=== PATIENT | female | born 1930 | race Caucasian/White ===

== ENCOUNTER → 2016-05-23 | Outpatient (CLI) | payer MEDICARE, OTHER ==
--- NOTE | 2016-05-23 09:52 | US ---
EXAMINATION TYPE: US abdomen complete DATE OF EXAM: 05/23/2016 9:17 AM COMPARISON: No previous CLINICAL HISTORY: RUQ Pain R10.11. RUQ tenderness x 2 months EXAM MEASUREMENTS: Liver Length: 12.9 cm Gallbladder Wall: 0.2 cm CBD: 0.5 cm Spleen: 8.0 cm Right Kidney: 9.7 x 4.2 x 4.1 cm Left Kidney: 9.9 x 4.1 x 4.5 cm TECHNOLOGIST IMPRESSION: Pancreas: visualized portions wnl, tail limited by overlying midline bowel gas Liver: wnl Gallbladder: wnl Evidence for sonographic Evangelista's sign: no CBD: visualized portions wnl Spleen: visualized portions wnl, limited by rib shadowing and overlying bowel gas Right Kidney: visualized portions wnl, limited by rib shadowing and overlying bowel gas Left Kidney: visualized portions wnl, limited by rib shadowing and overlying bowel gas Upper IVC: wnl Abd Aorta: wnl Limited views of the pancreas are normal. Liver is normal in size without biliary dilatation. The gallbladder is normal without evidence of cholelithiasis. The gallbladder wall measures 2 mm. The distal common hepatic duct measures 5 mm. The spleen is normal in size. Both kidneys are normal. Limited views of the aorta and IVC show atheromatous irregularity of a normal sized aorta. IMPRESSION: NORMAL ABDOMINAL ULTRASOUND.
== END | disposition home or self-care (01) ==
LOC: RADUSWWP 08:41
PROVIDERS: ATTEND Internal Medicine Geriatric Medicine
DX: R10.11 Right upper quadrant pain (principal)
CPT/HCPCS: 76700

== ENCOUNTER 2017-06-06 08:26 | Inpatient (IN) | payer MEDICARE, OTHER ==
[2017-06-06] MEDS ORDERED: MORPHINE SULFATE 4 MG/ML SYRINGE IVP ONE (08:59)
--- NOTE | 2017-06-06 09:04 | ED ---
Fall HPI - General Chief Complaint: Fall Stated Complaint: Fall Time Seen by Provider: 06/06/17 08:29 Source: patient, RN notes reviewed, old records reviewed Mode of arrival: EMS - History of Present Illness Initial Comments: This patient is a pleasant 87-year-old female chief complaint of right hip pain after a fall. Patient reports that she was on the phone with her daughter at 7: 00 this morning. She states that she was walking backwards and lost her balance and fell. Patient reports that she stayed on the phone the entire time with her daughter. She reports that she landed she did not have a headache injury or loss of conscious. Daughter reports that she talked to her the entire time she was on the phone. Patient does live alone at this time. She reports that her daughter came right away and she was brought here via EMS. She received 4 mg of morphine and Zofran via EMS prior to arrival. Patient states that she has seen Dr. Evangelista in the past for knee pain and was receiving cortisone injections. Patient is currently on warfarin, and has history of a pacemaker. Patient was going to be switching anticoagulant medications, and she discontinued her warfarin yesterday prior to starting the new medication tomorrow. Patient reports that she has some minor pain over her left foot but the majority of her pain is her right hip. She denies any numbness or tingling down the legs. - Related Data Home Medications Medication Instructions Recorded Confirmed Melatonin 5 mg PO HS PRN 01/30/15 06/06/17 Warfarin [Coumadin] 5 mg PO DIRECTED 01/30/15 06/06/17 Biotin 5 mg PO DAILY 06/06/17 06/06/17 Bisacodyl 5 mg PO HS 06/06/17 06/06/17 Calcium Polycarbophil [Fiber-Lax] 625 mg PO W/LUNCH 06/06/17 06/06/17 Docusate [Colace] 100 mg PO W/LUNCH 06/06/17 06/06/17 Edoxaban Tosylate [Savaysa] 30 mg PO DIRECTED 06/06/17 06/06/17 L.acidoph,Paracasei, B.lactis 1 cap PO DAILY 06/06/17 06/06/17 [Probiotic] Lactulose [Lactulose] 10 gm PO HS PRN 06/06/17 06/06/17 amLODIPine [Norvasc] 2.5 mg PO DAILY 06/06/17 06/06/17 Allergies Allergy/AdvReac Type Severity Reaction Status Date / Time No Known Allergies Allergy Verified 06/06/17 09:42 Review of Systems ROS Statement: Those systems with pertinent positive or pertinent negative responses have been documented in the HPI. ROS Other: All systems not noted in ROS Statement are negative. Past Medical History Past Medical History: Hypertension Additional Past Medical History / Comment(s): SEE CARDIOLOGY HISTORY PROVIDED DR. NAYAK. History of Any Multi-Drug Resistant Organisms: None Reported Past Surgical History: Hysterectomy, Pacemaker, Tonsillectomy Additional Past Surgical History / Comment(s): LEFT KNEE SCOPE. DUAL CHAMBER PACER. Past Anesthesia/Blood Transfusion Reactions: No Reported Reaction Type of Cardiac Device: Unknown Device Placement Date:: 2009 Past Psychological History: No Psychological Hx Reported Smoking Status: Never smoker Past Alcohol Use History: None Reported Past Drug Use History: None Reported General Exam - General Exam Comments Initial Comments: This patient is an 87-year-old female. She is alert and oriented. Limitations: physical limitation General appearance: alert, in no apparent distress Head exam: Present: atraumatic, normocephalic, normal inspection Eye exam: Present: normal appearance, PERRL, EOMI. Absent: scleral icterus, conjunctival injection, periorbital swelling ENT exam: Present: normal exam, mucous membranes moist Neck exam: Present: normal inspection. Absent: tenderness, meningismus, lymphadenopathy Respiratory exam: Present: normal lung sounds bilaterally. Absent: respiratory distress, wheezes, rales, rhonchi, stridor Cardiovascular Exam: Present: regular rate, normal rhythm, normal heart sounds. Absent: systolic murmur, diastolic murmur, rubs, gallop, clicks GI/Abdominal exam: Present: soft, normal bowel sounds. Absent: distended, tenderness, guarding, rebound, rigid Extremities exam: Present: normal inspection, full ROM, normal capillary refill. Absent: tenderness, pedal edema, joint swelling, calf tenderness Right Hip exam: Present: ecchymosis, shortening. Absent: normal inspection, full ROM ( unable to test range of motion of the hip due to pain and obvious shortening.), external rotation Upper Leg exam: Present: normal inspection, full ROM Knee exam: Present: normal inspection, full ROM Lower Leg exam: Present: normal inspection, full ROM Ankle exam: Present: normal inspection, full ROM Neurovascular tendon exam: Present: no vascular compromise Left Foot/Toe exam: Present: full ROM, tenderness (Minimal tenderness over the metatarsals 2 through 5.), ecchymosis (Patient has some ecchymosis over the dorsum of the left foot. She is able to move her toes. Normal pulses. Patient is lying to motion of the ankle and knee. Denies any pain in the left leg but does have some tenderness over the bruising of her left foot.). Absent : normal inspection Neurovascular tendon exam: Present: no vascular compromise Back exam: Present: normal inspection Neurological exam: Present: alert, oriented X3, CN II-XII intact Psychiatric exam: Present: normal affect, normal mood Skin exam: Present: warm, dry, intact, normal color. Absent: rash Course Vital Signs 06/06/17 06/06/17 08:28 10:00 Temperature 97 F L Pulse Rate 72 95 Respiratory 18 18 Rate Blood Pressure 186/84 171/97 O2 Sat by Pulse 97 98 Oximetry Medical Decision Making - Medical Decision Making This patient is a 7-year-old female presents for his parents today after a fall. She did not hit her head no loss conscious. She states she fell backward while talking on the phone. She does have evidence of shortened right leg with rotation consistent with fracture. Patient has a comminuted right hip fracture. Chest x-ray was reviewed and normal. Patient is currently on warfarin however she stopped it yesterday and has not had her dose today. She supposed to start a new anticoagulation medication on tomorrow. Patient at this time will be admitted to Dr. Rob consult to Dr. asencio patient's PCP for medical management. Asians family understands treatment plan. Full a catheter will be initiated. - Lab Data Result diagrams: 06/06/17 09:00 06/06/17 09:00 Lab Results 06/06/17 06/06/17 06/06/17 Range/Units 09:00 09:00 09:00 WBC 4.4 (3.8-10.6) k/uL RBC 4.41 (3.80-5.40) m/uL Hgb 13.2 (11.4-16.0) gm/dL Hct 39.8 (34.0-46.0) % MCV 90.3 (80.0-100.0) fL MCH 29.8 (25.0-35.0) pg MCHC 33.1 (31.0-37.0) g/dL RDW 13.7 (11.5-15.5) % Plt Count 233 (150-450) k/uL Neutrophils % 62 % Lymphocytes % 26 % Monocytes % 7 % Eosinophils % 2 % Basophils % 0 % Neutrophils # 2.8 (1.3-7.7) k/uL Lymphocytes # 1.2 (1.0-4.8) k/uL Monocytes # 0.3 (0-1.0) k/uL Eosinophils # 0.1 (0-0.7) k/uL Basophils # 0.0 (0-0.2) k/uL PT 17.2 H (9.0-12.0) sec INR 1.9 H (<1.2) APTT 27.3 (22.0-30.0) sec Sodium 143 (137-145) mmol/L Potassium 4.4 (3.5-5.1) mmol/L Chloride 107 (98-107) mmol/L Carbon Dioxide 26 (22-30) mmol/L Anion Gap 10 mmol/L BUN 15 (7-17) mg/dL Creatinine 0.78 (0.52-1.04) mg/dL Est GFR (CKD-EPI)AfAm 78 (>60 ml/min/1.73 sqM) Est GFR (CKD-EPI)NonAf 68 (>60 ml/min/1.73 sqM) Glucose 99 (74-99) mg/dL Calcium 9.6 (8.4-10.2) mg/dL Total Bilirubin 0.6 (0.2-1.3) mg/dL AST 29 (14-36) U/L ALT 31 (9-52) U/L Alkaline Phosphatase 79 (38-126) U/L Total Protein 6.8 (6.3-8.2) g/dL Albumin 3.8 (3.5-5.0) g/dL 06/06/17 11:42 EKG shows AV dual paced rhythm, ventricular rate of 60 bpm. MA interval 186 ms. QRS ration 156 most seconds. QT QTc is 492 ms. - Radiology Data Radiology results: report reviewed There is an acute comminuted impacted transcervical fracture of the right hip with cephalad translation of the greater trochanter proximally 2.5 cm. Chest x-ray is negative for any acute process. There is no acute fracture dislocation of the left foot. Generalized osseous demineralization and moderate degenerative changes of the midfoot and forefoot noted. Disposition Clinical Impression: Closed right hip fracture Disposition: ADMITTED IP TO THIS [facility] Condition: Good Referrals: Jose Walter MD [Primary Care Provider] - 1-2 days Time of Disposition: 11:46
[2017-06-06 09:27] LABS: Basophils % (A) 0 %; Eosinophils # (A) 0.1 k/uL (0-0.7); Eosinophils % (A) 2 %; HCT 39.8 % (34.0-46.0); HGB 13.2 gm/dL (11.4-16.0); Lymphocytes # (A) 1.2 k/uL (1.0-4.8); Lymphocytes % (A) 26 %; MCH 29.8 pg (25.0-35.0); MCHC 33.1 g/dL (31.0-37.0); MCV 90.3 fL (80.0-100.0); Mean Platelet Volume 7.3; Monocytes # (A) 0.3 k/uL (0-1.0); Monocytes % (A) 7 %; Neutrophils # (A) 2.8 k/uL (1.3-7.7); Neutrophils % (A) 62 %; Platelet Count 233 k/uL (150-450); RBC 4.41 m/uL (3.80-5.40); RDW 13.7 % (11.5-15.5); WBC 4.4 k/uL (3.8-10.6)
[2017-06-06 09:35] LABS: INR 1.9 (<1.2); Partial Thromboplastin Time 27.3 sec (22.0-30.0); Prothrombin Time 17.2 sec (9.0-12.0)
[2017-06-06 09:38] LABS: Albumin 3.8 g/dL (3.5-5.0); Calcium 9.6 mg/dL (8.4-10.2); Potassium 4.4 mmol/L (3.5-5.1); Total Bilirubin 0.6 mg/dL (0.2-1.3); Total Protein 6.8 g/dL (6.3-8.2)
--- NOTE | 2017-06-06 09:48 | XR ---
EXAMINATION TYPE: XR chest 1V DATE OF EXAM: 06/06/2017 COMPARISON: NONE HISTORY: Pain TECHNIQUE: Single frontal view of the chest is obtained. FINDINGS: There is no focal air space opacity, pleural effusion, or pneumothorax seen. The cardiac silhouette size is within normal limits. The osseous structures are intact. Cardiac device noted. A rthropathy of the shoulders and diffuse osteopenia. IMPRESSION: No acute process.
--- NOTE | 2017-06-06 09:59 | XR ---
EXAMINATION TYPE: XR Hip RT and AP Pelvis DATE OF EXAM: 06/06/2017 COMPARISON: NONE HISTORY: Fall and right hip pain TECHNIQUE: A single AP view of the pelvis is obtained. Two views of the right hip are obtained. FINDINGS: There is a comminuted, extra-articular, impacted transcervical fracture of the right hip wi th fracture fragments seen inferiorly near the femoral head and acetabular anterior wall. There is ce phalad translation of the greater trochanter of approximately 2.5 cm. The remainder of the osseous st ructures appear intact. Sacroiliac joints appear symmetric. No additional fracture is seen within the pelvis. Moderate femoral acetabular arthropathy and degenerative change of the lumbosacral junction are noted. IMPRESSION: Acute, comminuted, impacted transcervical fracture of the right hip with cephalad transla tion of the greater trochanter approximately 2.5 cm.
[2017-06-06] MEDS ORDERED: MORPHINE SULFATE 4 MG/ML SYRINGE IVP STA (10:00)
--- NOTE | 2017-06-06 10:01 | XR ---
EXAMINATION TYPE: XR foot limited LT DATE OF EXAM: 06/06/2017 CLINICAL HISTORY: Pain and bruising after a fall TECHNIQUE: Frontal, lateral, and oblique images of the left foot are obtained. COMPARISON: None FINDINGS: There is diffuse osseous demineralization. No evidence of acute fracture/dislocation is see n within the left foot. No focal soft tissue swelling is identified. Ankle mortise appears overall in tact. Moderate degenerative changes of the first metatarsophalangeal joint and distal interphalangeal joints are seen as well as to a lesser degree of the first tarsometatarsal joint. Moderate Achilles and small leads are enthesophytes are also seen. IMPRESSION: There is no acute fracture or dislocation in the left foot. Generalized osseous deminera lization and moderate degenerative changes of the midfoot and forefoot.
[2017-06-06] MEDS ORDERED: ONDANSETRON 4 MG/2 ML VIAL IVP PRN (11:46)
[2017-06-06] MEDS ORDERED: NALOXONE 0.4 MG/ML 1 ML VIAL IV PRN (11:46)
[2017-06-06] MEDS ORDERED: HYDROmorphone 0.5 MG/0.5 ML SYRINGE IVP PRN (11:46)
[2017-06-06] MEDS: HYDROcodone/APAP 5-325MG 1 EACH TAB PO PRN ×2 (12:41→16:08)
--- NOTE | 2017-06-06 12:41 | P.HPOR ---
History of Present Illness H&P Date: 06/06/17 Chief Complaint: Right hip pain status post fall Patient is a very pleasant 87-year-old female who is independent and lives at home alone who is seen and examined in the emergency department room #8 for further evaluation for her right acute comminuted impacted transcervical hip fracture. Patient is seen with her 2 daughters present at bedside. At approximately 7:00 this morning patient was on the phone with her daughter when she moved her feet to the side of the bed and fell off the side of the bed onto the floor. Family states she may have hit her hip on a piece of furniture on her way to the ground. Since that time she's been experiencing significant right-sided hip pain and inability to walk. She was brought to the emergency department for further evaluation. X-rays of the right hip andn pelvis were taken which did show evidence of right hip fracture. Patient continues to have significant pain in her right hip. She has remained on bed rest. Quintero catheter has not yet been placed at has been ordered. Patient is currently on Coumadin anticoagulation but has not taken this medication yesterday as she states she is transitioning to a non-anticoagulant medication. Her INR today was 1.9. Patient does have a history of pacemaker. She sees Dr. Nayak in cardiology in the outpatient setting. She also follows with her primary care provider Dr. Jose Walter. Patient denies any other complaints other than her right hip pain while I'm at the bedside. Patient has sensation intact over the bilateral lower extremities. Past Medical History Past Medical History: Hypertension Additional Past Medical History / Comment(s): SEE CARDIOLOGY HISTORY PROVIDED DR. NAYAK. History of Any Multi-Drug Resistant Organisms: None Reported Past Surgical History: Hysterectomy, Pacemaker, Tonsillectomy Additional Past Surgical History / Comment(s): LEFT KNEE SCOPE. DUAL CHAMBER PACER. Past Anesthesia/Blood Transfusion Reactions: No Reported Reaction Type of Cardiac Device: Unknown Device Placement Date:: 2009 Past Psychological History: No Psychological Hx Reported Smoking Status: Never smoker Past Alcohol Use History: None Reported Past Drug Use History: None Reported Medications and Allergies Home Medications Medication Instructions Recorded Confirmed Type Melatonin 5 mg PO HS PRN 01/30/15 06/06/17 History Warfarin [Coumadin] 5 mg PO DIRECTED 01/30/15 06/06/17 History Biotin 5 mg PO DAILY 06/06/17 06/06/17 History Bisacodyl 5 mg PO HS 06/06/17 06/06/17 History Calcium Polycarbophil [Fiber-Lax] 625 mg PO W/LUNCH 06/06/17 06/06/17 History Docusate [Colace] 100 mg PO W/LUNCH 06/06/17 06/06/17 History Edoxaban Tosylate [Savaysa] 30 mg PO DIRECTED 06/06/17 06/06/17 History L.acidoph,Paracasei, B.lactis 1 cap PO DAILY 06/06/17 06/06/17 History [Probiotic] Lactulose [Lactulose] 10 gm PO HS PRN 06/06/17 06/06/17 History amLODIPine [Norvasc] 2.5 mg PO DAILY 06/06/17 06/06/17 History Allergies Allergy/AdvReac Type Severity Reaction Status Date / Time No Known Allergies Allergy Verified 06/06/17 09:42 Physical Examination Physical exam: Patient is awake, alert, and oriented 3 Vital signs stable Good chest excursion with deep inspiration and expiration Right lower extremity is shortened and externally rotated Pain with palpation of the right hip Significant pain with internal and external rotation of the right hip Significant pain with palpation over the right hip fracture site No pain with internal and external rotation of the left hip Neurovascularly intact bilateral lower extremities Dorsiflexion, plantarflexion, and extensor hallucis longus positive sustained bilaterally Calves are soft and supple; No signs or symptoms of DVT; No calf pain Results Pertinent studies: X-rays of the right hip and pelvis: Acute comminuted impacted transcervical fracture of the right hip with cephalad translation of the greater trochanter approximately 2.5 cm Chest x-ray: No acute process X-ray of the left foot: No acute fracture dislocation of the left foot; generalize osseous demineralization and moderate degenerative changes of the midfoot and forefoot - Labs Labs: Abnormal Lab Results - Last 24 Hours (Table) 06/06/17 Range/Units 09:00 PT 17.2 H (9.0-12.0) sec INR 1.9 H (<1.2) H & H 06/06/17 Range/Units 09:00 Hgb 13.2 (11.4-16.0) gm/dL Hct 39.8 (34.0-46.0) % Coagulation 06/06/17 Range/Units 09:00 INR 1.9 H (<1.2) Result Diagrams: 06/06/17 09:00 06/06/17 09:00 Assessment and Plan Assessment: Assessment: Acute traumatic comminuted impacted right transcervical hip fracture Status post fall Right hip pain History of of anticoagulation therapy History of pacemaker placement (1) Status post fall Current Visit: Yes Status: Acute Code(s): Z91.81 - HISTORY OF FALLING SNOMED Code(s): 977877140 (2) Right hip pain Current Visit: Yes Status: Acute Code(s): M25.551 - PAIN IN RIGHT HIP SNOMED Code(s): 22182486 (3) History of pacemaker Current Visit: Yes Status: Acute Code(s): Z95.0 - PRESENCE OF CARDIAC PACEMAKER SNOMED Code(s): 660853111 (4) HX: anticoagulation Current Visit: Yes Status: Acute Code(s): Z92.29 - PERSONAL HISTORY OF OTHER DRUG THERAPY SNOMED Code(s): 265820720 (5) Closed right hip fracture Current Visit: Yes Status: Acute Code(s): S72.001A - FRACTURE OF UNSP PART OF NECK OF RIGHT FEMUR, INIT SNOMED Code(s): 565106515 Plan: Plan: 1. After further discussion with Dr. Sullivan, reviewing imaging, physical examination of the patient, and discussion with the patient and her family, we are currently planing for surgical intervention for her right acute traumatic comminuted impacted transcervical hip fracture. Patient is admitted to our service. We will plan for consultation for surgical clearance with Dr. Walter in medicine and Dr. Nayak in cardiology. We discussed if she is able to be cleared for surgical intervention, we'll plan for surgery tomorrow, 06/07/2017. We discussed surgical intervention would be a right hip hemiarthroplasty. Patient will currently remain on bed rest. We'll plan for Quintero catheter to be placed. We'll plan to continue with pain control. Patient will become nothing by mouth at midnight in anticipation for surgical intervention tomorrow. I discussed these issues with the patient at length and I answered all of their questions to the best of my ability and the patient understands. I discussed the risk of surgical intervention and alternative treatment options. The risk of surgical intervention was explained to the patient in detail including but not limited to risk of bleeding, risk of infection, risk and need for further surgery, risk of decreased loss of motion of function, malunion, nonunion, hardware failure, nerve damage, paralysis, heart attack, , as well as the fact that surgery may not alleviate her symptoms. I answered all the patient's questions the best of my ability. The patient would like to proceed forward with surgical intervention and will sign informed consent. 2. The patient has been placed with Dr. Walter in medicine and Dr. Nayak in cardiology for surgical clearance 3. Patient has been discussed with Dr. Sullivan and he agrees with this plan 4. We'll continue to follow the patient closely Time with Patient: Less than 30
[2017-06-06] MEDS: SODIUM CHLORIDE 0.9% 1,000 ML IV SCH (12:42)
[2017-06-06] MEDS: CALCIUM POLYCARBOPHIL 625 MG TAB PO SCH (13:46)
[2017-06-06] MEDS: DOCUSATE 100 MG CAP PO SCH (13:46)
[2017-06-06] MEDS: MORPHINE SULFATE 4 MG/ML SYRINGE IV PRN ×2 (14:16→18:08)
--- NOTE | 2017-06-06 18:53 | P.CONS ---
History of Present Illness - Reason for Consult Consult date: 06/06/17 - Chief Complaint medical management - History of Present Illness 87 years old female patient of Dr. Walter with past medical history of hyperlipidemia, hypertension, history of complete heart block status post dual pacemaker inserted in 2009 with generator change in 2014 presents after a fall. According to the family bedside patient was talking to her daughter at 7 this morning as she was waking her up for an appointment. Patient just woke up and was walking towards her cane when she lost her balance and fell backwards. Patient denies any dizziness or lightheadedness or chest pain She denies any shortness of breath, nausea, vomiting, abdominal pain or change in bowel habits. Patient was supposed to switch her Coumadin to Edoxaban and was holding her Coumadin since yesterday. She does have gait instability and walks with a cane. Vitals were stable with heart rate of 72, afebrile 97 Fahrenheit, blood pressure 186/84 saturating well on room air. CBC and CMP were unremarkable with creatinine 0.78. INR 1.9. X-ray of the foot is negative for any acute fracture or dislocation. Degenerative changes seen in the midfoot and forefoot x-ray of the hip positive for acute comminuted impacted transcervical fracture of the right hip with cephalad translation of the greater trochanter approximately 2.5 patient is scheduled to go to the OR for right hip hemiarthroplasty. Cardiology is consulted for surgical clearance. Review of Systems Constitutional: Denies chills, Denies fever, Denies lethargy Eyes: denies decreased vision, denies diplopia Ears: deny: decreased hearing Ears, nose, mouth and throat: Denies dental pain, Denies headache Cardiovascular: Denies chest pain, Denies decreased exercise tolerance, Denies edema, Denies high blood pressure, Denies irregular heart beat, Denies palpitations, Denies paroxysmal nocturnal dyspnea, Denies rapid heart beat, Denies shortness of breath Respiratory: Denies congestion, Denies cough, Denies cough with sputum, Denies dyspnea, Denies home oxygen, Denies wheezing Gastrointestinal: Denies abdominal pain, Denies change in bowel habits, Denies coffee ground emesis, Denies early satiety, Denies excessive gas, Denies heartburn, Denies hematemesis, Denies hematochezia, Denies loss of appetite, Denies nausea, Denies vomiting Genitourinary: Denies dysuria, Denies flank pain, Denies kidney stones, Denies menorrhagia, Denies urgency, Denies urinary frequency Musculoskeletal: Denies gait dysfunction, Denies limitation of motion, Denies morning stiffness, Denies muscle cramps Integumentary: Denies rash, Denies wounds, Denies brittle nails, Denies change in hair/nails, Denies darkening of skin, endorses bruise of the dorsal surface of the foot Neurological: Denies balance difficulties, Denies change in speech, Denies double vision, Denies gait dysfunction, Denies loss of vision, Denies motor disturbance, Denies numbness, Denies paralysis, Denies paresthesias, Denies seizures Endocrine: Denies excessive sweating, Denies excessive thirst, Denies high blood sugars, Denies palpitations Hematologic/Lymphatic: Denies easy bruising, Denies lymphadenopathy Past Medical History Past Medical History: Hyperlipidemia, Hypertension Additional Past Medical History / Comment(s): Complete heart block, caratid disease, "forgetful". History of Any Multi-Drug Resistant Organisms: None Reported Past Surgical History: Hysterectomy, Pacemaker, Tonsillectomy Additional Past Surgical History / Comment(s): 2010 dual pacemaker insertion with generator change in 2015, L knee arthroscopy, bilateral cataract removals Past Anesthesia/Blood Transfusion Reactions: No Reported Reaction Type of Cardiac Device: Permanent Pacemaker Device Placement Date:: 2009 inserted and gen change in 2014. Smoking Status: Never smoker - Past Family History Father Family Medical History: No Reported History Mother Family Medical History: Myocardial Infarction ([place]) Additional Family Medical History / Comment(s): Mother of a [place] before the age of 60yrs. Medications and Allergies Home Medications Medication Instructions Recorded Confirmed Type Melatonin 5 mg PO HS PRN 01/30/15 06/06/17 History Warfarin [Coumadin] 5 mg PO DIRECTED 01/30/15 06/06/17 History Biotin 5 mg PO DAILY 06/06/17 06/06/17 History Bisacodyl 5 mg PO HS 06/06/17 06/06/17 History Calcium Polycarbophil [Fiber-Lax] 625 mg PO W/LUNCH 06/06/17 06/06/17 History Docusate [Colace] 100 mg PO W/LUNCH 06/06/17 06/06/17 History Edoxaban Tosylate [Savaysa] 30 mg PO DIRECTED 06/06/17 06/06/17 History L.acidoph,Paracasei, B.lactis 1 cap PO DAILY 06/06/17 06/06/17 History [Probiotic] Lactulose [Lactulose] 10 gm PO HS PRN 06/06/17 06/06/17 History amLODIPine [Norvasc] 2.5 mg PO DAILY 06/06/17 06/06/17 History Allergies Allergy/AdvReac Type Severity Reaction Status Date / Time No Known Allergies Allergy Verified 06/06/17 09:42 Physical Exam Vitals: Vital Signs Temp Pulse Pulse Resp BP BP Pulse Ox 06/06/17 12:38 97.3 F L 62 20 154/49 97 06/06/17 12:00 97.3 F L 61 18 151/66 97 06/06/17 10:00 95 18 171/97 98 06/06/17 08:28 97 F L 72 18 186/84 97 Intake and Output 06/06/17 06/06/17 06/06/17 06:59 14:59 22:59 Intake Total 220 Balance 220 Intake: Oral 220 Other: Voiding Method Indwelling Catheter Weight 61.235 kg Patient Weight 06/07/17 06:59 Weight 61.235 kg - Constitutional General appearance: Groggy since patient got pain medication , unable to follow commands no acute distress, thin apearing - EENT Eyes: anicteric sclerae, PERRLA, normal appearance ENT: hearing grossly normal - Neck Neck: no lymphadenopathy, normal ROM, no other, no rigidity, no stridor, no thyromegaly - Respiratory Respiratory: bilateral: CTA, negative: diminished, dullness, rales, rhonchi - Cardiovascular Rhythm: regular Heart sounds: normal: S1, S2 Abnormal Heart Sounds: no systolic murmur, no diastolic murmur, no rub, no S3 Gallop, no S4 Gallop, no click, no other - Gastrointestinal General gastrointestinal: normal bowel sounds, soft, non distended, non tender - Integumentary Integumentary: no rash, bruise on the left dorsal surface of the foot, no edema present - Neurologic Neurologic: CNII-XII intact, no focal deficit - Musculoskeletal Musculoskeletal: pain on movement of the right lower extremity, patient unable to participate in exam due to sleepiness - Psychiatric Psychiatric sleepy, orientation could not be assessed as patient is sleepy Results CBC & Chem 7: 06/06/17 09:00 06/06/17 09:00 Labs: Abnormal Lab Results - Last 24 Hours (Table) 06/06/17 Range/Units 09:00 PT 17.2 H (9.0-12.0) sec INR 1.9 H (<1.2) Assessment and Plan Plan: #1 acute closed right hip fracture - plan for right hip rajat arthroplasty tomorrow pending surgical clearance by cardiology . Continue pain management with morphine and Mineral. Continue Protonix for GI prophylaxis hold Coumadin. Incentive spirometry for prevention of atelectasis. #2 hypertension continue Norvasc blood pressure consistently elevated likely secondary to pain will improve the control, if continues to have Norvasc dose can be increased. #3. History of complete heart block s/p pacemaker 2009, generator change in 2014. ECG suggests AV dual paced rhythm. Caumadin on hold. Eboxaban can be resumed post surgery based on orthopedics recommendation #4 GI prophylaxis - protonix 40 mg iv daily # 5 Code status Full code Thank you for the consult. We'll follow along with you medical care
[2017-06-06] MEDS ORDERED: ENALAPRILAT 1.25 MG/ML 1 ML VIAL IVP PRN (20:23)
[2017-06-06] MEDS ORDERED: ENALAPRILAT 1.25 MG/ML 1 ML VIAL IVP ONE (21:00)
[2017-06-06 23:10] LABS: Appearance,Urine Clear (Clear); Bacteria,Urine Rare /hpf; Bilirubin,Urine Negative (Negative); Blood,Urine Trace (Negative); Color,Urine Yellow; Glucose,Urine (UA) Negative (Negative); Hyaline Casts,Urine 1 /lpf (0-2); Ketones,Urine 1+ (Negative); Leukocyte Esterase,Urine Moderate (Negative); Mucus,Urine Rare /hpf; Nitrite,Urine Negative (Negative); PH, Urine 5.5 (5.0-8.0); Protein,Urine Negative (Negative); RBC,Urine 6 /hpf (0-5); Specific Gravity,Urine 1.016 (1.001-1.035); Squamous Epithelial Cell,Urine <1 /hpf (0-4); Urobilinogen,Urine <2.0 mg/dL (<2.0); WBC,Urine 23 /hpf (0-5)
[2017-06-07] MEDS: BISACODYL 5 MG TABLET.DR PO SCH ×2 (00:05→23:36)
[2017-06-07] MEDS: MORPHINE SULFATE 4 MG/ML SYRINGE IV PRN ×3 (00:08→20:36)
[2017-06-07 06:59] LABS: INR 1.8 (<1.2); Partial Thromboplastin Time 29.3 sec (22.0-30.0); Prothrombin Time 16.2 sec (9.0-12.0)
[2017-06-07] MEDS: PANTOPRAZOLE 40 MG/10 ML VIAL IV SCH (07:38)
[2017-06-07] MEDS: amLODIPine 2.5 MG TAB PO SCH (07:39)
[2017-06-07] MEDS ORDERED: NON-FORMULARY DRUG (Biotin [Biotin] 5 MG) PO SCH (09:00)
--- NOTE | 2017-06-07 10:38 | P.PN ---
Progress Note - Text Progress Note Date: 06/07/17 Patient is a pleasant 87-year-old female who is attempted to be seen and evaluated at the bedside this morning for further evaluation for her right femoral neck hip fracture. She is status post fall. Patient is currently undergoing EKG testing. Patient is currently scheduled to undergo right hip hemiarthroplasty today, 06/07/2017. This surgical intervention is discussed in detail with the patient's family. Patient has been medically cleared by medicine as long as the patient is cleared by cardiology. Dr. Pantoja presented to the floor during my discussion with the family and will see and evaluate the patient to assess medical clearance from a cardiology standpoint. Patient is unable to be physically seen and examined due to her currently undergoing further testing with an EKG. Pertinent studies: X-rays of the right hip and pelvis: Acute comminuted impacted transcervical fracture of the right hip with cephalad translation of the greater trochanter approximately 2.5 cm Chest x-ray: No acute process X-ray of the left foot: No acute fracture dislocation of the left foot; generalize osseous demineralization and moderate degenerative changes of the midfoot and forefoot Assessment: Acute traumatic comminuted impacted right transcervical hip fracture Status post fall Right hip pain History of of anticoagulation therapy History of pacemaker placement Plan: 1. Will currently continue with the plan as set forth yesterday. After further discussion with Dr. Sullivan, reviewing imaging, physical examination of the patient, and discussion with the patient and her family, we are currently planing for surgical intervention for her right acute traumatic comminuted impacted transcervical hip fracture. Patient is admitted to our service. Patient has obtained surgical clearance by Dr. Walter in medicine pending clearance by cardiology. Dr. Pantoja in cardiology's currently evaluating the patient for surgical clearance. We discussed if she is able to be cleared for surgical intervention, we'll plan for surgery this morning, 06/07/2017. We discussed surgical intervention would be a right hip hemiarthroplasty. Patient will currently remain on bed rest. Quintero catheter has been placed. We'll plan to continue with pain control. Patient will continued to be nothing by mouth in anticipation for surgical intervention today. Yesterday I discussed these issues with the patient at length and I answered all of their questions to the best of my ability and the patient understands. I discussed the risk of surgical intervention and alternative treatment options. The risk of surgical intervention was explained to the patient in detail including but not limited to risk of bleeding, risk of infection, risk and need for further surgery, risk of decreased loss of motion of function, malunion, nonunion, hardware failure, nerve damage, paralysis, heart attack, , as well as the fact that surgery may not alleviate her symptoms. I answered all the patient's questions the best of my ability. The patient would like to proceed forward with surgical intervention and will sign informed consent. 2. The patient has been placed with Dr. Walter in medicine who has cleared the patient pending clearance by cardiology 3. Dr. Pantoja in cardiology currently evaluating the patient for surgical clearance 3. Patient has been discussed with Dr. Sullivan and he agrees with this plan 4. We'll continue to follow the patient closely
--- NOTE | 2017-06-07 10:44 | P.CRDCN ---
History of Present Illness History of present illness: Patient stable from a vascular standpoint to proceed with surgery History of hypertension Bradycardia Atrial paced rhythm Normal 2-D echo preserved LV systolic function History of hypertension History of atrial fibrillation Continue antihypertensive therapy perioperatively Post Operative anticoagulation Will get pacemaker interrogated postoperatively No need for a magnet over the pacemaker operative Full Consult to follow Past Medical History Past Medical History: Hyperlipidemia, Hypertension Additional Past Medical History / Comment(s): Complete heart block, caratid disease, "forgetful". History of Any Multi-Drug Resistant Organisms: None Reported Past Surgical History: Hysterectomy, Pacemaker, Tonsillectomy Additional Past Surgical History / Comment(s): 2009 dual pacemaker insertion with generator change in 2014, L knee arthroscopy, bilateral cataract removals Past Anesthesia/Blood Transfusion Reactions: No Reported Reaction Type of Cardiac Device: Permanent Pacemaker Device Placement Date:: 2009 inserted and gen change in 2014. Smoking Status: Never smoker - Past Family History Father Family Medical History: No Reported History Mother Family Medical History: Myocardial Infarction ([place]) Additional Family Medical History / Comment(s): Mother of a [place] before the age of 60yrs. Medications and Allergies Home Medications Medication Instructions Recorded Confirmed Type Melatonin 5 mg PO HS PRN 01/30/15 06/06/17 History Warfarin [Coumadin] 5 mg PO DIRECTED 01/30/15 06/06/17 History Biotin 5 mg PO DAILY 06/06/17 06/06/17 History Bisacodyl 5 mg PO HS 06/06/17 06/06/17 History Calcium Polycarbophil [Fiber-Lax] 625 mg PO W/LUNCH 06/06/17 06/06/17 History Docusate [Colace] 100 mg PO W/LUNCH 06/06/17 06/06/17 History Edoxaban Tosylate [Savaysa] 30 mg PO DIRECTED 06/06/17 06/06/17 History L.acidoph,Paracasei, B.lactis 1 cap PO DAILY 06/06/17 06/06/17 History [Probiotic] Lactulose [Lactulose] 10 gm PO HS PRN 06/06/17 06/06/17 History amLODIPine [Norvasc] 2.5 mg PO DAILY 06/06/17 06/06/17 History Allergies Allergy/AdvReac Type Severity Reaction Status Date / Time No Known Allergies Allergy Verified 06/06/17 09:42 Physical Exam Vitals: Vital Signs Temp Pulse Pulse Resp BP BP Pulse Ox 06/07/17 07:00 97.8 F 80 20 139/62 95 06/07/17 00:25 97.9 F 73 15 136/60 93 L 06/07/17 00:00 15 06/06/17 20:00 61 15 06/06/17 19:00 97.9 F 61 16 149/71 94 L 06/06/17 12:38 97.3 F L 62 20 154/49 97 06/06/17 12:00 97.3 F L 61 18 151/66 97 Intake and Output 06/06/17 06/07/17 06/07/17 22:59 06:59 14:59 Intake Total 1440 1440 Output Total 500 300 Balance 940 1140 Intake: Intake, IV Titration 960 960 Amount Sodium Chloride 0.9% 1, 960 960 000 ml @ 120 mls/hr IV . Q8H20M [facility] Rx#:[id number] Oral 480 480 Output: Urine 500 300 Uretheral (Quintero) 500 300 Other: Voiding Method Indwelling Catheter Indwelling Catheter # Voids 5 Results 06/06/17 09:00 06/06/17 09:00 Coagulation 06/07/17 Range/Units 06:30 PT 16.2 H (9.0-12.0) sec APTT 29.3 (22.0-30.0) sec Current Medications Generic Name Dose Route Start Last Admin Trade Name Freq PRN Reason Stop Dose Admin Acetaminophen 650 mg 06/06/17 11:46 Tylenol Tab PO Q6HR PRN Mild Pain or Fever > 100.5 Hydrocodone Bitart/Acetaminophen 1 each 06/06/17 11:46 06/06/17 16:08 Pala 5-325 PO 1 each Q4HR PRN Administration Moderate Pain Amlodipine Besylate 2.5 mg 06/07/17 09:00 06/07/17 07:39 Norvasc PO 2.5 mg DAILY SAÚL Administration Bisacodyl 5 mg 06/06/17 21:00 06/07/17 00:05 Dulcolax PO Not Given HS SAÚL Calcium Polycarbophil 625 mg 06/06/17 12:30 06/06/17 13:46 Fibercon PO Not Given W/LUNCH SAÚL Ceftriaxone Sodium 1,000 mg 06/07/17 09:00 Rocephin IVP Q24HR [facility] Docusate Sodium 100 mg 06/06/17 12:30 06/06/17 13:46 Colace PO Not Given W/LUNCH [facility] Enalaprilat 1.25 mg 06/06/17 20:23 Vasotec IVP Q6HR PRN Blood Pressure - High Sodium Chloride 1,000 mls @ 120 mls/hr 06/06/17 12:00 06/06/17 12:42 Saline 0.9% IV 120 mls/hr .Q8H20M SAÚL Administration Lactobacillus Acidoph/Bulgaricus 1 each 06/07/17 12:00 Lactinex PO 1200 [facility] Lactulose 10 gm 06/06/17 11:50 Cephulac PO HS PRN Constipation Morphine Sulfate 4 mg 06/06/17 11:46 06/07/17 06:01 Morphine Sulfate (Inj) IV 4 mg Q4HR PRN Administration Severe Pain Naloxone HCl 0.2 mg 06/06/17 11:46 Narcan IV Q2M PRN Opioid Reversal Ondansetron HCl 4 mg 06/06/17 11:46 Zofran IVP Q8HR PRN Nausea And Vomiting Pantoprazole Sodium 40 mg 06/07/17 09:00 06/07/17 07:38 Protonix IV 40 mg DAILY SAÚL Administration Intake and Output 06/06/17 06/07/17 06/07/17 22:59 06:59 14:59 Intake Total 1440 1440 Output Total 500 300 Balance 940 1140 Intake: Intake, IV Titration 960 960 Amount Sodium Chloride 0.9% 1, 960 960 000 ml @ 120 mls/hr IV . Q8H20M [facility] Rx#:[id number] Oral 480 480 Output: Urine 500 300 Uretheral (Quintero) 500 300 Other: Voiding Method Indwelling Catheter Indwelling Catheter # Voids 5 06/06/17 09:00 06/06/17 09:00
[2017-06-07] MEDS: cefTRIAXone IN SWFI 1,000 MG/10 ML SYRINGE IVP SCH (11:16)
[2017-06-07] MEDS ORDERED: PHENYLEPHRINE-0.9% NACL SYG 1 MG/10 ML SYRINGE ONE (11:42)
[2017-06-07] MEDS ORDERED: fentaNYL (PF) 50 MCG/ML 2 ML AMP ONE (11:42)
[2017-06-07] MEDS ORDERED: ROCURONIUM BROMIDE 10 MG/ML 10 ML VIAL IV ONE (11:42)
[2017-06-07] MEDS ORDERED: PROPOFOL 10 MG/ML 20 ML VIAL IV ONE (11:42)
[2017-06-07] MEDS ORDERED: GLYCOPYRROLATE 0.2 MG/ML 2 ML VIAL ONE (11:42)
[2017-06-07] MEDS ORDERED: NEOSTIGMINE 1 MG/ML 10 ML VIAL ONE (11:42)
[2017-06-07] MEDS ORDERED: IV FLUID CONTINUATION 700 ML IV ONE (11:42)
[2017-06-07] MEDS ORDERED: SODIUM CHLORIDE 0.9% 50 ML with ceFAZolin 2,000 MG IV ONE ×2 (12:05)
[2017-06-07] MEDS ORDERED: LACTATED RINGERS 1,000 ML IV ONE (12:18)
[2017-06-07] MEDS ORDERED: SCOPOLAMINE 1.5MG/72HR PATCH TRANSDERM ONE (13:00)
[2017-06-07] MEDS ORDERED: ONDANSETRON 4 MG/2 ML VIAL IVP ONE (13:00)
--- NOTE | 2017-06-07 13:31 | CONS ---
CONSULTATION Liliya Falcon is an 87-year-old female who was talking to her daughter on the phone when she apparently slipped and fell. She did not have any syncope. She did not have any preceding chest discomfort or shortness of breath. Following that, today she has no chest pain, no shortness of breath and looks quite comfortable. She has a hip fracture and is awaiting surgery. She has a past history of hypertension, bradycardia, dual-chamber pacemaker implantation, and a history of atrial fibrillation, on anticoagulation. REVIEW OF SYSTEMS: No fever, chills or rigors. No cough or expectoration. No nausea, vomiting or diarrhea. No hematuria or dysuria. No strokes or seizures. No skin lesions. She has a hip fracture at this time. PAST HISTORY: 1. Hypertension. 2. Dyslipidemia. SURGICAL HISTORY: 1. Hysterectomy. 2. Tonsillectomy. SOCIAL HISTORY: She has never been a smoker. PHYSICAL EXAMINATION: Her blood pressure was 138/62 mmHg, heart rate in the 80s. She is afebrile, 97.8 degrees Fahrenheit. Head and neck examination is normal. Heart sounds are normal. LUNGS: Clear on auscultation. ABDOMEN: Soft, nontender. Twelve-lead ECG shows AV sequential pacing. LABS: Reviewed. Hemoglobin is 13.2. Electrolytes are normal. IMPRESSION: 1. History of bradycardia and complete heart block. She is AV sequentially paced. 2. Hypertension, on antihypertensive therapy. 3. History of atrial fibrillation, on anticoagulation. SUGGEST: Patient will proceed from a cardiac standpoint. Her 2D echo shows preserved LV systolic function. She does have complete heart block, but the surgical site is far away from the pacemaker and therefore a magnet would not be necessary. If there were any issues of bradycardia or inhibition, then a magnet may be placed intraoperatively. Antihypertensive therapy should be continued perioperatively. Thank you for the consultation. MMODL / IJN: [id number] /
--- NOTE | 2017-06-07 13:57 | P.OP ---
Date of Procedure: 06/07/17 Procedure(s) Performed: PREOPERATIVE DIAGNOSIS: Right hip femoral neck fracture POSTOPERATIVE DIAGNOSIS: Right hip femoral neck fracture OPERATION: Right hip cemented unipolar hemiarthroplasty. ANESTHESIA: Gen. ESTIMATED BLOOD LOSS: 200 ml. HOCKEY SCOUT: None COMPLICATIONS: None apparent. COMPONENTS IMPLANTED: Veronica LDFx cemented femoral stem; unipolar femoral head; neck extension augments as needed. INDICATIONS: Mrs. Falcon is an 87-year-old female with a history of falling and sustaining a femoral neck fracture. I have recommended surgical treatment with a cemented unipolar hemiarthroplasty. I have discussed this procedure in detail and explained the potential risks and complications as being inclusive of , but not limited to: Bleeding, infection, scarring, discomfort, blood vessel and/or nerve damage, limb length inequality, gait disturbance, blood clot, pulmonary embolism, , and other risks. The consent form has been signed. PROCEDURE: After appropriate consent was obtained, the patient was taken to the operating room and placed in supine position. Gen. anesthetic was administered and after confirmation of adequate anesthesia, the patient was placed into the lateral decubitus position with the affected side up. Care was taken to make sure that all pressure points were adequately padded and a Miguel Angel hip positioner was utilized for positioning. The hip was prepped and draped in the usual aseptic fashion using a combination of Chloraprep and alcohol. Ioban drape was used for the case and the patient received intravenous antibiotics prior to the incision. The incision was created directly over the greater trochanter and carried slightly posteriorly for a posterior approach to the hip. The incision was then deepened down to subcutaneous tissue and fascia jean-pierre. Fascia jean-pierre was split in line with the incision and split proximally along the fibers of the gluteus bailey. The underlying fibers of the muscle were teased apart using finger dissection and bleeding vessels were picked up and coagulated. Retractor was then placed posteriorly consisting of a blunt Linton. The short external rotators and capsule were exposed and good visualization of the attachment of the external rotators to the femur was established. The short external rotators and capsule were released using electrocautery from their femoral attachments. A hockey stick shaped incision was created in the capsule. Joint fluid and hemarthrosis was evacuated and the patient's hip was internally rotated to expose the fracture site. The femoral neck cut was created approximately 1 cm superior to the lesser trochanter using a reciprocating saw. The femoral head and neck fragment was removed and visualization and palpation of the acetabular vault showed intact hyaline cartilage with no bone exposure or significant degeneration. Attention was then directed back to the proximal femur. Retractors were placed around the proximal femur and box osteotome was used followed by canal finder and trochanteric reamer. Cylindrical reaming was performed. Progressive broaching was then performed starting with a #10 broach and progressing final size, in a position of 10-15 degrees anteversion. Kaw anteversion was within 5 degrees of stem position. The final size broach had excellent fit and fill of the patient's metaphysis and diaphysis. Calcar planing was performed. Trial reduction was then performed starting with appropriately sized femoral head and various neck extensions to evaluate stability, limb length equality, and soft tissue tension. Once these parameters were satisfactory, the corresponding final components were then called for. Trial components were removed. The femoral canal was sized for the centralizer and cement plug. Once the cement plug had been inserted distal to the planned length of the femoral component, the canal was pulse lavaged and brushed to remove any unstable bone. It was then dried with a lap sponge. Cement was mixed under vacuum conditions to decrease porosity and inserted into a cement gun. Distal centralizer was placed onto the femoral component with a bit of cement. The cement was allowed to reach a slightly doughy consistency and then the canal was filled retrograde with the cement gun. Thumb pressurization was performed three times. The femoral component was then inserted with the previously determined degree of anteversion. Excess cement was removed before it hardened completely. The femoral head was then impacted onto the Platt taper. Blood and debris were removed from the acetabular socket and the hip was then reduced and checked for stability, limb length and soft tissue tension. These parameters were found to be satisfactory; the wound was then thoroughly irrigated with normal saline. Final hemostasis was obtained using electrocautery. Closure of the capsule was performed meticulously using #3 Vicryl suture. Four [id number] sutures were placed in the posterior capsule along with repair of the external rotators. The fascia jean-pierre was then repaired using combination of #3 Vicryl suture in interrupted fashion and Quill in running fashion. 2-0 Vicryl suture was used for the subcutaneous tissues and 3-0 Quill for the skin. Dermabond tape was then applied. The patient tolerated the procedure well. There were no complications and the wound bed was dry and there was no need for drain placement. Sterile dressing was then applied and the patient was carefully removed from the operating room table, placed on the stretcher and was taken to the recovery room in stable condition. Sponge and needle counts were correct.
[2017-06-07] MEDS: LACTOBACILLUS ACIDOPH & BULGAR 1 EACH PACKET PO SCH (15:44)
[2017-06-07] MEDS: CALCIUM POLYCARBOPHIL 625 MG TAB PO SCH (15:44)
[2017-06-07] MEDS: DOCUSATE 100 MG CAP PO SCH (15:44)
[2017-06-07] MEDS ORDERED: WARFARIN 2.5 MG TAB PO ONE (18:00)
[2017-06-07] MEDS: HYDROcodone/APAP 5-325MG 1 EACH TAB PO PRN ×2 (18:22→23:36)
[2017-06-07] MEDS: ceFAZolin IN SWFI 2 GM/20 ML SYRINGE IVP SCH (20:40)
--- NOTE | 2017-06-07 21:50 | P.PN ---
Subjective Progress Note Date: 06/07/17 87 years old female patient of Dr. Walter with past medical history of hyperlipidemia, hypertension, history of complete heart block status post dual pacemaker inserted in 2009 with generator change in 2014 presents after a fall. According to the family bedside patient was talking to her daughter at 7 this morning as she was waking her up for an appointment. Patient just woke up and was walking towards her cane when she lost her balance and fell backwards. Patient denies any dizziness or lightheadedness or chest pain She denies any shortness of breath, nausea, vomiting, abdominal pain or change in bowel habits. Patient was supposed to switch her Coumadin to Edoxaban and was holding her Coumadin since yesterday. She does have gait instability and walks with a cane. Vitals were stable with heart rate of 72, afebrile 97 Fahrenheit, blood pressure 186/84 saturating well on room air. CBC and CMP were unremarkable with creatinine 0.78. INR 1.9. X-ray of the foot is negative for any acute fracture or dislocation. Degenerative changes seen in the midfoot and forefoot x-ray of the hip positive for acute comminuted impacted transcervical fracture of the right hip with cephalad translation of the greater trochanter approximately 2.5 patient is scheduled to go to the OR for right hip hemiarthroplasty. Cardiology is consulted for surgical clearance. 06/07: Patient has been cleared by cardiology, patient has been off Coumadin, pacemaker to be interrogated post op, patient does not have any chest pain or shortness of breath or palpitations, and is currently being wheeled out for intraoperative rajat-arthroplasty today the urinalysis requested, patient has some pyuria, currently being treated with IV Rocephin initiated for urinary tract infection Objective - Vital Signs Vital signs: Vital Signs Temp 97.8 F 06/07/17 07:00 Pulse 80 06/07/17 07:00 Resp 20 06/07/17 07:00 BP 139/62 06/07/17 07:00 Pulse Ox 95 06/07/17 07:00 Intake & Output 06/06/17 06/07/17 06/07/17 18:59 06:59 18:59 Intake Total 220 2880 Output Total 500 300 Balance -280 2580 Weight 61.235 kg Intake: Intake, IV Titration 1920 Amount Sodium Chloride 0.9% 1919 000 ml @ 120 mls/hr IV . Q8H20M [facility] Rx#:[id number] Oral 220 960 Output: Urine 500 300 Uretheral (Quintero) 500 300 Other: Voiding Method Indwelling Catheter Indwelling Catheter Indwelling Catheter # Voids 5 - Constitutional General appearance: Present: average body habitus, cooperative, no acute distress - EENT Eyes: Present: anicteric sclerae, EOMI, PERRLA, dentition normal, normal appearance ENT: Present: hearing grossly normal, NA/AT, normal oropharynx - Neck Neck: Present: normal ROM - Respiratory Respiratory: bilateral: CTA, negative: diminished, dullness, rales - Cardiovascular Rhythm: regular Heart sounds: normal: S1, S2 Abnormal Heart Sounds: Absent: systolic murmur, diastolic murmur, rub, S3 Gallop , S4 Gallop, click, other - Gastrointestinal General gastrointestinal: Present: soft - Integumentary Integumentary: Present: normal, normal turgor - Neurologic Neurologic: Present: CNII-XII intact - Musculoskeletal Musculoskeletal: Present: strength equal bilaterally - Psychiatric Psychiatric: Present: A&O x's 3, appropriate affect, intact judgment & insight - Additional findings Additional findings: Laboratory Results WBC 4.4 k/uL (3.8-10.6) 06/06/17 09:00 RBC 4.41 m/uL (3.80-5.40) 06/06/17 09:00 Hgb 13.2 gm/dL (11.4-16.0) 06/06/17 09:00 Hct 39.8 % (34.0-46.0) 06/06/17 09:00 MCV 90.3 fL (80.0-100.0) 06/06/17 09:00 MCH 29.8 pg (25.0-35.0) 06/06/17 09:00 MCHC 33.1 g/dL (31.0-37.0) 06/06/17 09:00 RDW 13.7 % (11.5-15.5) 06/06/17 09:00 Plt Count 233 k/uL (150-450) 06/06/17 09:00 Neutrophils % 62 % 06/06/17 09:00 Lymphocytes % 26 % 06/06/17 09:00 Monocytes % 7 % 06/06/17 09:00 Eosinophils % 2 % 06/06/17 09:00 Basophils % 0 % 06/06/17 09:00 Neutrophils # 2.8 k/uL (1.3-7.7) 06/06/17 09:00 Lymphocytes # 1.2 k/uL (1.0-4.8) 06/06/17 09:00 Monocytes # 0.3 k/uL (0-1.0) 06/06/17 09:00 Eosinophils # 0.1 k/uL (0-0.7) 06/06/17 09:00 Basophils # 0.0 k/uL (0-0.2) 06/06/17 09:00 PT 16.2 sec (9.0-12.0) H 06/07/17 06:30 INR 1.8 (<1.2) H 06/07/17 06:30 APTT 29.3 sec (22.0-30.0) 06/07/17 06:30 Sodium 143 mmol/L (137-145) 06/06/17 09:00 Potassium 4.4 mmol/L (3.5-5.1) 06/06/17 09:00 Chloride 107 mmol/L (98-107) 06/06/17 09:00 Carbon Dioxide 26 mmol/L (22-30) 06/06/17 09:00 Anion Gap 10 mmol/L 06/06/17 09:00 BUN 15 mg/dL (7-17) 06/06/17 09:00 Creatinine 0.78 mg/dL (0.52-1.04) 06/06/17 09:00 Est GFR (CKD-EPI)AfAm 78 (>60 ml/min/1.73 sqM) 06/06/17 09:00 Est GFR (CKD-EPI)NonAf 68 (>60 ml/min/1.73 sqM) 06/06/17 09:00 Glucose 99 mg/dL (74-99) 06/06/17 09:00 Calcium 9.6 mg/dL (8.4-10.2) 06/06/17 09:00 Total Bilirubin 0.6 mg/dL (0.2-1.3) 06/06/17 09:00 AST 29 U/L (14-36) 06/06/17 09:00 ALT 31 U/L (9-52) 06/06/17 09:00 Alkaline Phosphatase 79 U/L (38-126) 06/06/17 09:00 Total Protein 6.8 g/dL (6.3-8.2) 06/06/17 09:00 Albumin 3.8 g/dL (3.5-5.0) 06/06/17 09:00 Urine Color Yellow 06/06/17 22:43 Urine Appearance Clear (Clear) 06/06/17 22:43 Urine pH 5.5 (5.0-8.0) 06/06/17 22:43 Ur Specific [place] 1.016 (1.001-1.035) 06/06/17 22:43 Urine Protein Negative (Negative) 06/06/17 22:43 Urine Glucose (UA) Negative (Negative) 06/06/17 22:43 Urine Ketones 1+ (Negative) H 06/06/17 22:43 Urine Blood Trace (Negative) H 06/06/17 22:43 Urine Nitrite Negative (Negative) 06/06/17 22:43 Urine Bilirubin Negative (Negative) 06/06/17 22:43 Urine Urobilinogen <2.0 mg/dL (<2.0) 06/06/17 22:43 Ur Leukocyte Esterase Moderate (Negative) H 06/06/17 22:43 Urine RBC 6 /hpf (0-5) H 06/06/17 22:43 Urine WBC 23 /hpf (0-5) H 06/06/17 22:43 Ur Squamous Epith Cells <1 /hpf (0-4) 06/06/17 22:43 Urine Bacteria Rare /hpf (None) H 06/06/17 22:43 Hyaline Casts 1 /lpf (0-2) 06/06/17 22:43 Urine Mucus Rare /hpf (None) H 06/06/17 22:43 - Labs CBC & Chem 7: 06/06/17 09:00 06/06/17 09:00 Labs: Abnormal Lab Results - Last 24 Hours (Table) 06/06/17 06/07/17 Range/Units 22:43 06:30 PT 16.2 H (9.0-12.0) sec INR 1.8 H (<1.2) Urine Ketones 1+ H (Negative) Urine Blood Trace H (Negative) Ur Leukocyte Esterase Moderate H (Negative) Urine RBC 6 H (0-5) /hpf Urine WBC 23 H (0-5) /hpf Urine Bacteria Rare H (None) /hpf Urine Mucus Rare H (None) /hpf Assessment and Plan Plan: . #1 acute closed right hip fracture - plan for right hip rajat arthroplasty today on 06/07/2017 cleared by cardiology to proceed . Continue pain management with morphine and [place]. Continue Protonix for GI prophylaxis hold Coumadin. Incentive spirometry for prevention of atelectasis. Him a DVT anticoagulation patient's on long-term anticoagulation prior to this admission #2 hypertension continue Norvasc blood pressure consistently elevated likely secondary to pain will improve the control, if continues to have Norvasc dose can be increased. #3. History of atrial fibrillation, currently on long-term anticoagulation with Savaysa this would be resumed postoperatively, however patient is also on Coumadin prior to admission which is a confusing home medication medication reconciliation, this will be clarified #4 History of complete heart block s/p pacemaker 2009, generator change in 2014. ECG suggests AV dual paced rhythm. Chronically on long-term anticoagulation #5 GI prophylaxis - protonix 40 mg iv daily # 5 Code status DO NOT RESUSCITATE #6, pyuria, suspected acute urinary tract infection on IV Rocephin initiated, cultures are sent and is pending #7, discharge planning, subacute rehab with patient or inpatient rehabilitation , therapies are in progress
[2017-06-07] MEDS: SODIUM CHLORIDE 0.9% 1,000 ML IV SCH ×2 (22:37→22:38)
[2017-06-08] MEDS: SODIUM CHLORIDE 0.9% 1,000 ML IV SCH ×4 (00:35→23:06)
[2017-06-08] MEDS: MORPHINE SULFATE 4 MG/ML SYRINGE IV PRN ×2 (01:43→11:21)
[2017-06-08] MEDS: ceFAZolin IN SWFI 2 GM/20 ML SYRINGE IVP SCH (04:24)
[2017-06-08] MEDS: HYDROcodone/APAP 5-325MG 1 EACH TAB PO PRN ×3 (08:08→23:04)
[2017-06-08] MEDS: PANTOPRAZOLE 40 MG/10 ML VIAL IV SCH (08:08)
[2017-06-08] MEDS: amLODIPine 2.5 MG TAB PO SCH (08:08)
[2017-06-08 08:16] LABS: INR 2.2 (<1.2); Prothrombin Time 19.5 sec (9.0-12.0)
[2017-06-08] MEDS: cefTRIAXone IN SWFI 1,000 MG/10 ML SYRINGE IVP SCH (08:45)
[2017-06-08] MEDS: LACTOBACILLUS ACIDOPH & BULGAR 1 EACH PACKET PO SCH (12:06)
[2017-06-08] MEDS: DOCUSATE 100 MG CAP PO SCH (12:06)
[2017-06-08] MEDS: CALCIUM POLYCARBOPHIL 625 MG TAB PO SCH (12:06)
--- NOTE | 2017-06-08 13:31 | P.PN ---
Progress Note - Text Progress Note Date: 06/08/17 Patient is a pleasant 87-year-old female who is seen and examined at bedside for follow-up evaluation for her right hip. She is status post day #1 for right hip hemiarthroplasty. Patient continues to have some pain in the right hip. She has been receiving oral and IV pain medications for pain control. She has been able to transfer to a bedside chair with assistance. She has had some improvement of her pain as compared to prior to surgical intervention. She is eating without difficulty. Quintero catheter remains intact. She is being treated for urinary tract infection by medicine with [place]. Patient and her family states they have discussed discharged to [facility] with plans for discharge this coming 06/10/2017. Physical Exam Hip Hemiarthroplasty: Status post surgical day number 1 Patient is examined sitting bedside upright in a chair Patient is awake, alert, and oriented 3 Vital signs stable Good chest excursion with deep inspiration and expiration Abdomen soft nontender No signs or symptoms of DVT; no calf pain Lower extremity cuffs in place bilaterally Dressing of the right hip is clean, dry, and intact; no erythema, purulence, or signs of infection Full range of motion of ankles bilaterally Dorsiflexion, plantarflexion, and extensor hallucis longus positive sustained bilaterally Neurovascularly intact bilateral lower extremities Capillary refill less than 2 seconds bilateral lower extremities Quintero catheter intact Assessment: Status post day #1 right hip hemiarthroplasty Right hip pain Status post fall Urinary tract infection History of of anticoagulation therapy History of pacemaker placement Plan: 1. Patient may continue to weight-bear as tolerated on the lower extremity; patient may work with physical therapy to increase mobility and ambulation 2. Continue pain control 3. We will plan to discontinue her Quintero catheter 4. Medicine to continue following the patient for their other medical issues including treatment for urinary tract infection 5. Continue with with anticoagulation therapy 5. We'll continue to follow the patient 6. If the patient continues to improve, we will plan for discharge to [facility] this coming 06/10/2017 7. Patient can follow-up with Birdie Chang PA-C or Dr. Sullivan at [facility] in 2-3 weeks following discharge
[2017-06-08] MEDS: BISACODYL 5 MG TABLET.DR PO SCH (22:31)
--- NOTE | 2017-06-08 23:29 | P.PN ---
Subjective Progress Note Date: 06/08/17 87 years old female patient of Dr. Walter with past medical history of hyperlipidemia, hypertension, history of complete heart block status post dual pacemaker inserted in 2009 with generator change in 2014 presents after a fall. According to the family bedside patient was talking to her daughter at 7 this morning as she was waking her up for an appointment. Patient just woke up and was walking towards her cane when she lost her balance and fell backwards. Patient denies any dizziness or lightheadedness or chest pain She denies any shortness of breath, nausea, vomiting, abdominal pain or change in bowel habits. Patient was supposed to switch her Coumadin to Edoxaban and was holding her Coumadin since yesterday. She does have gait instability and walks with a cane. Vitals were stable with heart rate of 72, afebrile 97 Fahrenheit, blood pressure 186/84 saturating well on room air. CBC and CMP were unremarkable with creatinine 0.78. INR 1.9. X-ray of the foot is negative for any acute fracture or dislocation. Degenerative changes seen in the midfoot and forefoot x-ray of the hip positive for acute comminuted impacted transcervical fracture of the right hip with cephalad translation of the greater trochanter approximately 2.5 patient is scheduled to go to the OR for right hip hemiarthroplasty. Cardiology is consulted for surgical clearance. 06/07: Patient has been cleared by cardiology, patient has been off Coumadin, pacemaker to be interrogated post op, patient does not have any chest pain or shortness of breath or palpitations, and is currently being wheeled out for intraoperative rajat-arthroplasty today the urinalysis requested, patient has some pyuria, currently being treated with IV Rocephin initiated for urinary tract infection 06/08: Patient's doing well, no significant postoperative pain, no nausea no chest pain or palpitations, cardiology is following regarding pacemaker interrogation, patient is anticipated to be discharged to [facility] on Friday, until coagulation has been clarified, patient is to be transitioned to Savayza chronically, Coumadin discontinued today, Savayza first dose in the morning Objective - Vital Signs Vital signs: Vital Signs Temp 98.1 F 06/08/17 00:00 Pulse 83 06/08/17 00:00 Resp 18 06/08/17 00:00 BP 117/64 06/08/17 00:00 Pulse Ox 96 06/08/17 00:00 Intake & Output 06/07/17 06/08/17 06/08/17 17:59 06:59 18:59 Intake Total 100 Output Total 200 Balance -100 Intake: IV Intake, IV Titration Amount Sodium Chloride 0.9% 1, 000 ml @ 120 mls/hr IV . Q8H20M [facility] Rx#:[id number] Oral 100 Output: Urine 200 Uretheral (Quintero) 200 Estimated Blood Loss Other: Voiding Method Indwelling Catheter # Voids - Constitutional General appearance: Present: cooperative, no acute distress - EENT Eyes: Present: anicteric sclerae, PERRLA, dentition normal, normal appearance ENT: Present: hearing grossly normal, normal oropharynx - Respiratory Respiratory: bilateral: CTA, diminished, negative: dullness, rales, rhonchi, wheezing, prolonged expiration - Cardiovascular Rhythm: regular Heart sounds: normal: S1, S2 Abnormal Heart Sounds: Absent: systolic murmur, diastolic murmur, rub, S3 Gallop , S4 Gallop, click, other - Gastrointestinal General gastrointestinal: Present: normal bowel sounds, soft - Integumentary Integumentary: Present: normal turgor - Neurologic Neurologic: Present: CNII-XII intact - Musculoskeletal Musculoskeletal: Present: strength equal bilaterally - Labs CBC & Chem 7: 06/06/17 09:00 06/06/17 09:00 Labs: Abnormal Lab Results - Last 24 Hours (Table) 06/08/17 Range/Units 07:00 PT 19.5 H (9.0-12.0) sec INR 2.2 H (<1.2) Microbiology - Last 24 Hours (Table) 06/07/17 09:35 Urine Culture - Preliminary Urine,Catheterized Assessment and Plan Plan: . #1 acute closed right hip fracture - plan for right hip rajat arthroplasty today on 06/07/2017 cleared by cardiology to proceed . Continue pain management with morphine and [place]. Continue Protonix for GI prophylaxis hold Coumadin. Incentive spirometry for prevention of atelectasis. Him a DVT anticoagulation patient's on long-term anticoagulation prior to this admission #2 hypertension continue Norvasc blood pressure consistently elevated likely secondary to pain will improve the control, if continues to have Norvasc dose can be increased. #3. History of atrial fibrillation, currently on long-term anticoagulation with Savaysa this would be resumed postoperatively, however patient is also on Coumadin prior to admission, this is clarified to family members, she has rx for savayza 30 mg #4 History of complete heart block s/p pacemaker 2009, generator change in 2014. ECG suggests AV dual paced rhythm. Chronically on long-term anticoagulation #5 GI prophylaxis - protonix 40 mg iv daily # 5 Code status DO NOT RESUSCITATE #6, pyuria, suspected acute urinary tract infection on IV Rocephin initiated, cultures are sent and is pending #7, discharge planning, subacute rehab with patient or inpatient rehabilitation , therapies are in progress
[2017-06-09] MEDS: ACETAMINOPHEN TAB 325 MG TAB PO PRN (01:57)
[2017-06-09 08:08] LABS: Basophils % (A) 0 %; Eosinophils # (A) 0.1 k/uL (0-0.7); Eosinophils % (A) 2 %; HCT 28.8 % (34.0-46.0); Lymphocytes % (A) 13 %; MCH 29.9 pg (25.0-35.0); MCHC 33.8 g/dL (31.0-37.0); MCV 88.5 fL (80.0-100.0); Mean Platelet Volume 7.3; Monocytes # (A) 0.6 k/uL (0-1.0); Monocytes % (A) 8 %; Neutrophils # (A) 5.5 k/uL (1.3-7.7); Neutrophils % (A) 76 %; Platelet Count 216 k/uL (150-450); RBC 3.26 m/uL (3.80-5.40); RDW 13.5 % (11.5-15.5); WBC 7.3 k/uL (3.8-10.6)
[2017-06-09 08:10] LABS: Potassium 4.1 mmol/L (3.5-5.1)
[2017-06-09 08:12] LABS: HGB 9.7 gm/dL (11.4-16.0)
[2017-06-09] MEDS: cefTRIAXone IN SWFI 1,000 MG/10 ML SYRINGE IVP SCH (08:42)
[2017-06-09] MEDS: HYDROcodone/APAP 5-325MG 1 EACH TAB PO PRN ×2 (08:42→16:58)
[2017-06-09] MEDS: EDOXABAN TOSYLATE 30 MG TABLET PO SCH (08:43)
[2017-06-09] MEDS: PANTOPRAZOLE 40 MG/10 ML VIAL IV SCH (08:43)
[2017-06-09] MEDS: amLODIPine 2.5 MG TAB PO SCH (08:43)
[2017-06-09] MEDS: LACTULOSE 20 GM/30 ML CUP PO PRN (11:20)
--- NOTE | 2017-06-09 13:13 | ECHOF ---
Referral Reason:surgery MEASUREMENTS -------- HEIGHT: 152.4 cm WEIGHT: 61.2 kg BP: RVIDd: 2.6 cm (< 3.3) IVSd: 1.5 cm (0.6 - 1.1) LVIDd: 2.6 cm (3.9 - 5.3) LVPWd: 1.6 cm (0.6 - 1.1) IVSs: 1.7 cm LVIDs: 1.5 cm LVPWs: 2.0 cm LAESV Index (A-L): 20.09 ml/m Ao Diam: 2.8 cm (2.0 - 3.7) AV Cusp: 1.7 cm (1.5 - 2.6) LA Diam: 3.0 cm (2.7 - 3.8) MV EXCURSION: 8.134 mm (> 18.000) MV EF SLOPE: 30 mm/s (70 - 150) EPSS: 0.7 cm MV E Edgard: 0.79 m/s MV DecT: 271 ms MV A Edgard: 1.23 m/s MV E/A Ratio: 0.65 RAP: 5.00 mmHg RVSP: 20.06 mmHg FINDINGS -------- Paced rhythm. This was a technically good study. The left ventricular size is normal. There is moderate concentric left ventricular hypertrophy. O verall left ventricular systolic function is low-normal with, an EF between 50 - 55 %. The right ventricle is normal in size and function. The left atrium is normal in size. The right atrium is normal in size. The aortic valve is trileaflet, and appears structurally normal. No aortic stenosis or regurgitation. The mitral valve leaflets are mildly thickened. Mild mitral regurgitation is present. Mild tricuspid regurgitation present. The right ventricular systolic pressure, as measured by Doppl er, is 20.06mmHg. Pulmonic valve appears structurally normal. The aortic root size is normal. Normal inferior vena cava with normal inspiratory collapse consistent with estimated right atrial pre ssure of 5 mmHg. The pericardium is normal. CONCLUSIONS -------- 1. Paced rhythm. 2. This was a technically good study. 3. The left ventricular size is normal. 4. There is moderate concentric left ventricular hypertrophy. 5. Overall left ventricular systolic function is low-normal with, an EF between 50 - 55 %. 6. The right ventricle is normal in size and function. 7. The left atrium is normal in size. 8. The right atrium is normal in size. 9. The aortic valve is trileaflet, and appears structurally normal. No aortic stenosis or regurgitati on. 10. The mitral valve leaflets are mildly thickened. 11. Mild mitral regurgitation is present. 12. Mild tricuspid regurgitation present. 13. The right ventricular systolic pressure, as measured by Doppler, is 20.06mmHg. 14. Pulmonic valve appears structurally normal. 15. The aortic root size is normal. 16. Normal inferior vena cava with normal inspiratory collapse consistent with estimated right atrial pressure of 5 mmHg. 17. The pericardium is normal. BOOKSTORE CLERK: Birdie Mendez RDCS
[2017-06-09] MEDS: TAMSULOSIN 0.4 MG CAP.ER.24H PO SCH (14:53)
[2017-06-09] MEDS: DOCUSATE 100 MG CAP PO SCH (14:53)
[2017-06-09] MEDS: CALCIUM POLYCARBOPHIL 625 MG TAB PO SCH (14:53)
[2017-06-09] MEDS: CEPHALEXIN 500 MG CAP PO SCH ×2 (14:53→20:29)
--- NOTE | 2017-06-09 15:33 | P.PN ---
Subjective 87 years old female patient of Dr. Walter with past medical history of hyperlipidemia, hypertension, history of complete heart block status post dual pacemaker inserted in 2009 with generator change in 2014 presents after a fall. According to the family bedside patient was talking to her daughter at 7 this morning as she was waking her up for an appointment. Patient just woke up and was walking towards her cane when she lost her balance and fell backwards. Patient denies any dizziness or lightheadedness or chest pain She denies any shortness of breath, nausea, vomiting, abdominal pain or change in bowel habits. Patient was supposed to switch her Coumadin to Edoxaban and was holding her Coumadin since yesterday. She does have gait instability and walks with a cane. Vitals were stable with heart rate of 72, afebrile 97 Fahrenheit, blood pressure 186/84 saturating well on room air. CBC and CMP were unremarkable with creatinine 0.78. INR 1.9. X-ray of the foot is negative for any acute fracture or dislocation. Degenerative changes seen in the midfoot and forefoot x-ray of the hip positive for acute comminuted impacted transcervical fracture of the right hip with cephalad translation of the greater trochanter approximately 2.5 patient is scheduled to go to the OR for right hip hemiarthroplasty. Cardiology is consulted for surgical clearance. 06/07: Patient has been cleared by cardiology, patient has been off Coumadin, pacemaker to be interrogated post op, patient does not have any chest pain or shortness of breath or palpitations, and is currently being wheeled out for intraoperative rajat-arthroplasty today the urinalysis requested, patient has some pyuria, currently being treated with IV Rocephin initiated for urinary tract infection 06/08: Patient's doing well, no significant postoperative pain, no nausea no chest pain or palpitations, cardiology is following regarding pacemaker interrogation, patient is anticipated to be discharged to [facility] on Friday, until coagulation has been clarified, patient is to be transitioned to Savayza chronically, Coumadin discontinued today, Savayza first dose in the morning 06/09: Patient was evaluated today, family was at bedside. Patient was noted to have some urinary retention, she was straight cathed and noted to have 900 mL's of urine this morning. Flomax added will continue to monitor for urinary retention. Dr. Montemayor consulted for possible inpatient rehab. Plan for possible discharge tomorrow. Objective - Vital Signs Vital signs: Vital Signs Temp 97.1 F L 06/09/17 14:54 Pulse 91 06/09/17 14:54 Resp 16 06/09/17 14:54 BP 142/67 06/09/17 14:54 Pulse Ox 97 06/09/17 14:54 Intake & Output 06/08/17 06/09/17 06/09/17 18:59 06:59 18:59 Intake Total 760 590 Output Total 200 1045 950 Balance 560 -455 -950 Intake: Oral 760 590 Output: Urine 200 1045 950 Straight 950 Uretheral (Quintero) 200 Other: Voiding Method Bedside Commode Bedside Commode Bedside Commode Bedpan Bedpan Diaper Diaper # Voids 1 - Exam - Constitutional General appearance: Present: cooperative, no acute distress - EENT Eyes: Present: anicteric sclerae, PERRLA, dentition normal, normal appearance ENT: Present: hearing grossly normal, normal oropharynx - Respiratory Respiratory: bilateral: CTA, diminished, negative: dullness, rales, rhonchi, wheezing, prolonged expiration - Cardiovascular Rhythm: regular Heart sounds: normal: S1, S2 Abnormal Heart Sounds: Absent: systolic murmur, diastolic murmur, rub, S3 Gallop , S4 Gallop, click, other - Gastrointestinal General gastrointestinal: Present: normal bowel sounds, soft - Integumentary Integumentary: Present: normal turgor - Neurologic Neurologic: Present: CNII-XII intact - Musculoskeletal Musculoskeletal: Present: strength equal bilaterally - Labs CBC & Chem 7: 06/09/17 06:41 06/09/17 06:41 Labs: Abnormal Lab Results - Last 24 Hours (Table) 06/09/17 06/09/17 Range/Units 06:41 06:41 RBC 3.26 L (3.80-5.40) m/uL Hgb 9.7 L D (11.4-16.0) gm/dL Hct 28.8 L (34.0-46.0) % Glucose 113 H (74-99) mg/dL Microbiology - Last 24 Hours (Table) 06/07/17 09:35 Urine Culture - Preliminary Urine,Catheterized Group D Enterococcus Assessment and Plan Plan: #1 acute closed right hip fracture - plan for right hip rajat arthroplasty today on 06/07/2017 cleared by cardiology to proceed. Continue pain management with morphine and [place]. Continue Protonix for GI prophylaxis hold Coumadin. Incentive spirometry for prevention of atelectasis. Him a DVT anticoagulation patient's on long-term anticoagulation prior to this admission #2 hypertension continue Norvasc blood pressure consistently elevated likely secondary to pain will improve the control, if continues to have Norvasc dose can be increased. #3. History of atrial fibrillation, currently on long-term anticoagulation with Savaysa this would be resumed postoperatively, however patient is also on Coumadin prior to admission, this is clarified to family members, she has rx for savayza 30 mg #4 History of complete heart block s/p pacemaker 2009, generator change in 2014. ECG suggests AV dual paced rhythm. Chronically on long-term anticoagulation #5 GI prophylaxis - protonix 40 mg iv daily #6 Code status DO NOT RESUSCITATE #7 pyuria, suspected acute urinary tract infection on IV Rocephin initiated, cultures are sent positive for group D enterococcus #8 discharge planning, subacute rehab with patient or inpatient rehabilitation, therapies are in progress The above impression and plan of care have been discussed and directed by signing physician. Sary Figueroa nurse practitioner acting as scribe for signing physician.
[2017-06-09] MEDS: ALPRAZolam 0.25 MG TAB PO PRN (20:29)
[2017-06-09] MEDS: LACTOBACILLUS ACIDOPH & BULGAR 1 EACH PACKET PO SCH (20:29)
[2017-06-09] MEDS: BISACODYL 5 MG TABLET.DR PO SCH (20:29)
[2017-06-09] MEDS: SODIUM CHLORIDE 0.9% 1,000 ML IV SCH (22:44)
[2017-06-10] MEDS: HYDROcodone/APAP 5-325MG 1 EACH TAB PO PRN (00:18)
--- NOTE | 2017-06-10 06:26 | P.CONS ---
History of Present Illness - Chief Complaint Walking difficulty - History of Present Illness I had the opportunity to see patient for inpatient rehab consultation with regard to walking difficulty. She was admitted to [facility] June 06 with history of fall and right hip pain. X-ray demonstrated comminuted impacted transcervical right hip fracture. Chest x-ray negative. Foot x-ray with demineralization. Seen by Dr. Cortez for medical as well as Dr. Pantoja for cardiology. PT reports moderate assistance for bed mobility, transfers, gait 4 feet with roller walker. OT reports supervision for upper dressing and maximal assistance for lower dressing and moderate assistance for bathing, toileting, functional mobility. Previous functional history as elicited from patient: 87-year-old right-handed white female who is lives and 2 floor home with . Receives assistance for cooking and laundry. Describes independent with standing shower and gait without device. Dr. Walter is regular doctor. Review of Systems Review of systems: ENT: Denies sneezes or discharge. Eyes: Denies discharge or photophobia. Cardiac: Denies chest pain or palpitation. Pulmonary: Denies cough or shortness of breath. Breast: Denies discharge or lumps. Gastrointestinal: Denies nausea, emesis, constipation, diarrhea. Genitourinary: Denies discharge or frequency. Musculoskeletal: Right hip discomfort. Neurologic: Denies motor or sensory change. Endocrine: Denies shakes or sweats. Oncology: Denies cancers. Dermatologic: Denies rash, itching, pruritus. ALLERGY/immunology: Denies sneezes, rashes. Past Medical History Past Medical History: Hyperlipidemia, Hypertension Additional Past Medical History / Comment(s): Complete heart block, caratid disease, "forgetful". History of Any Multi-Drug Resistant Organisms: None Reported Past Surgical History: Hysterectomy, Pacemaker, Tonsillectomy Additional Past Surgical History / Comment(s): 2010 dual pacemaker insertion with generator change in 2015, L knee arthroscopy, bilateral cataract removals Past Anesthesia/Blood Transfusion Reactions: No Reported Reaction Type of Cardiac Device: Permanent Pacemaker Device Placement Date:: 2009 inserted and gen change in 2014. Smoking Status: Never smoker - Past Family History Father Family Medical History: No Reported History Mother Family Medical History: Myocardial Infarction (IN) Additional Family Medical History / Comment(s): Mother of a IN before the age of 60yrs. Medications and Allergies Home Medications Medication Instructions Recorded Confirmed Type Melatonin 5 mg PO HS PRN 01/30/15 06/06/17 History Warfarin [Coumadin] 5 mg PO DIRECTED 01/30/15 06/06/17 History Biotin 5 mg PO DAILY 06/06/17 06/06/17 History Bisacodyl 5 mg PO HS 06/06/17 06/06/17 History Calcium Polycarbophil [Fiber-Lax] 625 mg PO W/LUNCH 06/06/17 06/06/17 History Docusate [Colace] 100 mg PO W/LUNCH 06/06/17 06/06/17 History Edoxaban Tosylate [Savaysa] 30 mg PO DIRECTED 06/06/17 06/06/17 History L.acidoph,Paracasei, B.lactis 1 cap PO DAILY 06/06/17 06/06/17 History [Probiotic] Lactulose [Lactulose] 10 gm PO HS PRN 06/06/17 06/06/17 History amLODIPine [Norvasc] 2.5 mg PO DAILY 06/06/17 06/06/17 History Allergies Allergy/AdvReac Type Severity Reaction Status Date / Time No Known Allergies Allergy Verified 06/06/17 09:42 Physical Exam Vitals: Vital Signs Temp Pulse Resp BP Pulse Ox 06/10/17 01:31 97.0 F L 103 H 16 158/67 95 06/09/17 20:21 98.7 F 100 16 146/73 96 06/09/17 14:54 97.1 F L 91 16 142/67 97 06/09/17 07:00 98.4 F 88 16 146/62 98 Intake and Output 06/09/17 06/09/17 06/10/17 14:59 22:59 06:59 Output Total 1300 550 Balance -1300 -550 Output: Urine 1300 550 Straight 950 Other: Voiding Method Bedside Commode Bedside Commode Bedpan Bedpan Diaper Diaper # Voids 1 # Bowel Movements 1 Skin: Atrophic, intact. General: Medium build and comfortable appearance. Head: Normocephalic, atraumatic. Eyes: Symmetric. Pupils equal round. Ears: Symmetric. Hearing within normal limits. Mouth: Clear. Neck: Supple. Carotid without bruit. Cardiac: Regular rate and rhythm. Lungs: Clear anteriorly and posteriorly. Abdomen: Soft active nontender. Extremities: Normal tone. Right hip clean and dressed. Neurological: Mental status: Alert, cooperative, pleasant. Cranial nerves: Symmetric facial tone and trapezius. Motor: Able to elevate both arms and left leg off of bed. Active movement right ankle. Sensation: Intact throughout. DTRs: Symmetric and equal throughout. Mobility: Moderate assistance for bed mobility. Results CBC & Chem 7: 06/09/17 06:41 06/09/17 06:41 Labs: Abnormal Lab Results - Last 24 Hours (Table) 06/09/17 06/09/17 Range/Units 06:41 06:41 RBC 3.26 L (3.80-5.40) m/uL Hgb 9.7 L D (11.4-16.0) gm/dL Hct 28.8 L (34.0-46.0) % Glucose 113 H (74-99) mg/dL Microbiology - Last 24 Hours (Table) 06/07/17 09:35 Urine Culture - Final Urine,Catheterized Enterococcus faecalis Chest x-ray: report reviewed (Negative.) Assessment and Plan (1) Closed right hip fracture Current Visit: Yes Status: Acute Code(s): S72.001A - FRACTURE OF UNSP PART OF NECK OF RIGHT FEMUR, INIT SNOMED Code(s): 078646694 Plan: Impression: 1. Walking difficulty. 2. Right hip fracture status post hemiarthroplasty placement. 3. History of pacemaker. 4. Hypertension. 5. Dyslipidemia. Comments and plan: PT and OT are ongoing. Safety concerns noted. At this time , patient appears hopeful for Marwood placement. This may be appropriate with regard to patient's endurance levels.
[2017-06-10] MEDS: CEPHALEXIN 500 MG CAP PO SCH (07:55)
[2017-06-10] MEDS: EDOXABAN TOSYLATE 30 MG TABLET PO SCH (07:55)
[2017-06-10] MEDS: PANTOPRAZOLE 40 MG/10 ML VIAL IV SCH (07:55)
[2017-06-10] MEDS: amLODIPine 2.5 MG TAB PO SCH (07:55)
[2017-06-10] MEDS: TAMSULOSIN 0.4 MG CAP.ER.24H PO SCH (07:56)
[2017-06-10 07:58] LABS: Basophils % (A) 0 %; Eosinophils % (A) 0 %; HCT 28.3 % (34.0-46.0); HGB 9.4 gm/dL (11.4-16.0); Lymphocytes # (A) 0.6 k/uL (1.0-4.8); Lymphocytes % (A) 7 %; MCH 29.7 pg (25.0-35.0); MCHC 33.2 g/dL (31.0-37.0); MCV 89.3 fL (80.0-100.0); Mean Platelet Volume 7.4; Monocytes # (A) 0.4 k/uL (0-1.0); Monocytes % (A) 6 %; Neutrophils # (A) 6.4 k/uL (1.3-7.7); Neutrophils % (A) 85 %; Platelet Count 241 k/uL (150-450); RBC 3.17 m/uL (3.80-5.40); RDW 13.5 % (11.5-15.5); WBC 7.5 k/uL (3.8-10.6)
[2017-06-10 08:22] LABS: Anion Gap 8 mmol/L; Blood Urea Nitrogen 12 mg/dL (7-17); Carbon Dioxide 27 mmol/L (22-30); Chloride 103 mmol/L (98-107); Glucose 123 mg/dL (74-99); Potassium 3.8 mmol/L (3.5-5.1); Sodium 138 mmol/L (137-145)
--- NOTE | 2017-06-10 10:55 | P.PN ---
Subjective Progress Note Date: 06/09/17 Principal diagnosis: Right hip fracture. Status post hemiarthroplasty right hip. This is an 87-year-old female admitted with right hip fracture. She is status post hemiarthroplasty of the right hip on 06/07/2017. She is complaining of some knee pain today. Otherwise no new complaints or concerns today. Vital signs are stable. Objective - Vital Signs Vital signs: Vital Signs Temp 97.1 F L 06/09/17 14:54 Pulse 91 06/09/17 14:54 Resp 16 06/09/17 14:54 BP 142/67 06/09/17 14:54 Pulse Ox 97 06/09/17 14:54 Intake & Output 06/08/17 06/09/17 06/09/17 18:59 06:59 18:59 Intake Total 760 590 Output Total 200 1045 950 Balance 560 -455 -950 Intake: Oral 760 590 Output: Urine 200 1045 950 Straight 950 Uretheral (Quintero) 200 Other: Voiding Method Bedside Commode Bedside Commode Bedside Commode Bedpan Bedpan Diaper Diaper # Voids 1 - Exam This is a pleasant 87-year-old female in no acute distress. Her daughter is present at bedside. She is slightly confused today. Exam of the right hip reveals no erythema or ecchymosis. The Dermabond glue is intact. There is no active drainage. She has full foot and ankle motion without difficulty or pain. Neurovascular status to the lower extremity is intact. - Labs CBC & Chem 7: 06/10/17 07:22 06/10/17 07:22 Labs: Abnormal Lab Results - Last 24 Hours (Table) 06/09/17 06/09/17 Range/Units 06:41 06:41 RBC 3.26 L (3.80-5.40) m/uL Hgb 9.7 L D (11.4-16.0) gm/dL Hct 28.8 L (34.0-46.0) % Glucose 113 H (74-99) mg/dL Microbiology - Last 24 Hours (Table) 06/07/17 09:35 Urine Culture - Preliminary Urine,Catheterized Group D Enterococcus Assessment and Plan (1) Status post hip hemiarthroplasty Current Visit: Yes Status: Acute Code(s): Z96.649 - PRESENCE OF UNSPECIFIED ARTIFICIAL HIP JOINT SNOMED Code(s): 548107381 (2) Closed right hip fracture Current Visit: Yes Status: Acute Code(s): S72.001A - FRACTURE OF UNSP PART OF NECK OF RIGHT FEMUR, INIT SNOMED Code(s): 423847069 (3) Right hip pain Current Visit: Yes Status: Acute Code(s): M25.551 - PAIN IN RIGHT HIP SNOMED Code(s): 90170318 (4) Status post fall Current Visit: Yes Status: Acute Code(s): Z91.81 - HISTORY OF FALLING SNOMED Code(s): 653029539 Plan: The clinical findings are discussed with the patient and her daughter. She is to continue with physical therapy as directed. We're planning discharge to inpatient rehab.
--- NOTE | 2017-06-10 10:58 | P.PN ---
Subjective Progress Note Date: 06/10/17 Principal diagnosis: Right hip fracture. Status post hemiarthroplasty right hip. This is an 87-year-old female admitted with right hip fracture. She is status post hemiarthroplasty of the right hip on 06/07/2017. Her Quintero catheter was reinserted. The daughter states that there is concern about urinary tract infection. The daughter also states the patient has been significantly confused since last evening. She has not slept the last 12 hours. Vital signs are stable. Objective - Vital Signs Vital signs: Vital Signs Temp 97.2 F L 06/10/17 07:53 Pulse 98 06/10/17 07:53 Resp 17 06/10/17 09:00 BP 168/77 06/10/17 07:53 Pulse Ox 94 L 06/10/17 07:53 Intake & Output 06/09/17 06/10/17 06/10/17 18:59 06:59 18:59 Output Total 1300 550 750 Balance -1300 -550 -750 Output: Urine 1300 550 750 Straight 950 Uretheral (Quintero) 750 Other: Voiding Method Bedside Commode Indwelling Catheter Bedpan Diaper # Voids 1 # Bowel Movements 1 - Exam This is a pleasant 87-year-old female in no acute distress. Her daughter is present at bedside. She is confused today. Exam of the right hip reveals no erythema or ecchymosis. The Dermabond glue is intact. There is no active drainage. She has full foot and ankle motion without difficulty or pain. Neurovascular status to the lower extremity is intact. - Labs CBC & Chem 7: 06/10/17 07:22 06/10/17 07:22 Labs: Abnormal Lab Results - Last 24 Hours (Table) 06/10/17 06/10/17 Range/Units 07:22 07:22 RBC 3.17 L (3.80-5.40) m/uL Hgb 9.4 L (11.4-16.0) gm/dL Hct 28.3 L (34.0-46.0) % Lymphocytes # 0.6 L (1.0-4.8) k/uL Glucose 123 H (74-99) mg/dL Microbiology - Last 24 Hours (Table) 06/07/17 09:35 Urine Culture - Final Urine,Catheterized Enterococcus faecalis Assessment and Plan (1) Status post hip hemiarthroplasty Current Visit: Yes Status: Acute Code(s): Z96.649 - PRESENCE OF UNSPECIFIED ARTIFICIAL HIP JOINT SNOMED Code(s): 068334470 (2) Closed right hip fracture Current Visit: Yes Status: Acute Code(s): S72.001A - FRACTURE OF UNSP PART OF NECK OF RIGHT FEMUR, INIT SNOMED Code(s): 729687680 (3) Right hip pain Current Visit: Yes Status: Acute Code(s): M25.551 - PAIN IN RIGHT HIP SNOMED Code(s): 92937202 (4) Status post fall Current Visit: Yes Status: Acute Code(s): Z91.81 - HISTORY OF FALLING SNOMED Code(s): 846567973 Plan: The clinical findings are discussed with the patient and her daughter. We will hold her discharge today secondary to the confusion and possible urinary tract issues. We're planning discharge to inpatient rehab.
[2017-06-10] MEDS: LACTOBACILLUS ACIDOPH & BULGAR 1 EACH PACKET PO SCH (11:41)
[2017-06-10] MEDS: CALCIUM POLYCARBOPHIL 625 MG TAB PO SCH (11:41)
[2017-06-10] MEDS: DOCUSATE 100 MG CAP PO SCH (11:41)
[2017-06-10] MEDS: AMOXICILLIN 500 MG CAP PO SCH ×3 (11:42→20:14)
[2017-06-10] MEDS ORDERED: MORPHINE ORAL SOLN 10 MG/5 ML CUP PO PRN (15:11)
--- NOTE | 2017-06-10 19:39 | P.PN ---
Subjective 87 years old female patient of Dr. Walter with past medical history of hyperlipidemia, hypertension, history of complete heart block status post dual pacemaker inserted in 2009 with generator change in 2014 presents after a fall. According to the family bedside patient was talking to her daughter at 7 this morning as she was waking her up for an appointment. Patient just woke up and was walking towards her cane when she lost her balance and fell backwards. Patient denies any dizziness or lightheadedness or chest pain She denies any shortness of breath, nausea, vomiting, abdominal pain or change in bowel habits. Patient was supposed to switch her Coumadin to Edoxaban and was holding her Coumadin since yesterday. She does have gait instability and walks with a cane. Vitals were stable with heart rate of 72, afebrile 97 Fahrenheit, blood pressure 186/84 saturating well on room air. CBC and CMP were unremarkable with creatinine 0.78. INR 1.9. X-ray of the foot is negative for any acute fracture or dislocation. Degenerative changes seen in the midfoot and forefoot x-ray of the hip positive for acute comminuted impacted transcervical fracture of the right hip with cephalad translation of the greater trochanter approximately 2.5 patient is scheduled to go to the OR for right hip hemiarthroplasty. Cardiology is consulted for surgical clearance. 06/07: Patient has been cleared by cardiology, patient has been off Coumadin, pacemaker to be interrogated post op, patient does not have any chest pain or shortness of breath or palpitations, and is currently being wheeled out for intraoperative rajat-arthroplasty today the urinalysis requested, patient has some pyuria, currently being treated with IV Rocephin initiated for urinary tract infection 06/08: Patient's doing well, no significant postoperative pain, no nausea no chest pain or palpitations, cardiology is following regarding pacemaker interrogation, patient is anticipated to be discharged to [facility] on Friday, until coagulation has been clarified, patient is to be transitioned to Savayza chronically, Coumadin discontinued today, Savayza first dose in the morning 06/09: Patient was evaluated today, family was at bedside. Patient was noted to have some urinary retention, she was straight cathed and noted to have 900 mL's of urine this morning. Flomax added will continue to monitor for urinary retention. Dr. Montemayor consulted for possible inpatient rehab. Plan for possible discharge tomorrow. 06/10: Patient was very confused this morning, and last night, she took one tab of Maplewood, patient did not sleep over the past 12 hours she was even very angry to the daughter which is unlike her, patient remains to be afebrile, cultures growing Enterococcus faecalis, pansensitive except to tetracycline, patient's antibiotic was streamlined to start amoxicillin or ampicillin, and discontinue Keflex. No leukocytosis noted, hemoglobin of 9.4, patient's eating okay however at 50% of normal appetite, no other cardiopulmonary complaints no GI complaints including diarrhea Objective - Vital Signs Vital signs: Vital Signs Temp 97.2 F L 06/10/17 07:53 Pulse 98 06/10/17 07:53 Resp 17 06/10/17 09:00 BP 168/77 06/10/17 07:53 Pulse Ox 94 L 06/10/17 07:53 Intake & Output 06/09/17 06/10/17 06/10/17 18:59 06:59 18:59 Output Total 1300 550 750 Balance -1300 -550 -750 Output: Urine 1300 550 750 Straight 950 Uretheral (Quintero) 750 Other: Voiding Method Bedside Commode Indwelling Catheter Bedpan Diaper # Voids 1 # Bowel Movements 1 - Constitutional General appearance: Present: cooperative, no acute distress - EENT Eyes: Present: anicteric sclerae, EOMI, normal appearance ENT: Present: NA/AT, normal oropharynx - Neck Neck: Present: normal ROM - Respiratory Respiratory: bilateral: CTA, diminished, negative: dullness, rales, rhonchi, wheezing - Cardiovascular Rhythm: regular Heart sounds: normal: S1, S2 Abnormal Heart Sounds: Absent: systolic murmur, diastolic murmur, rub, S3 Gallop , S4 Gallop, click, other - Gastrointestinal General gastrointestinal: Present: normal bowel sounds, soft - Integumentary Integumentary: Present: normal, normal turgor - Musculoskeletal Musculoskeletal: Present: strength equal bilaterally - Psychiatric Psychiatric: Present: A&O x's 3, appropriate affect - Labs CBC & Chem 7: 06/10/17 07:22 06/10/17 07:22 Labs: Abnormal Lab Results - Last 24 Hours (Table) 06/10/17 06/10/17 Range/Units 07:22 07:22 RBC 3.17 L (3.80-5.40) m/uL Hgb 9.4 L (11.4-16.0) gm/dL Hct 28.3 L (34.0-46.0) % Lymphocytes # 0.6 L (1.0-4.8) k/uL Glucose 123 H (74-99) mg/dL Microbiology - Last 24 Hours (Table) 06/07/17 09:35 Urine Culture - Final Urine,Catheterized Enterococcus faecalis Microbiology 06/07/17 09:35 Urine,Catheterized Urine Culture - Final Enterococcus faecalis Assessment and Plan Plan: #1 acute closed right hip fracture - plan for right hip rajat arthroplasty today on 06/07/2017 cleared by cardiology to proceed. Continue pain management with morphine and Maplewood. Continue Protonix for GI prophylaxis hold Coumadin. Incentive spirometry for prevention of atelectasis. Him a DVT anticoagulation patient's on long-term anticoagulation prior to this admission #2 hypertension continue Norvasc blood pressure consistently elevated likely secondary to pain will improve the control, if continues to have Norvasc dose can be increased. #3. History of atrial fibrillation, currently on long-term anticoagulation with Savaysa this would be resumed postoperatively, however patient is also on Coumadin prior to admission, this is clarified to family members, she has rx for savayza 30 mg #4 History of complete heart block s/p pacemaker 2009, generator change in 2014. ECG suggests AV dual paced rhythm. Chronically on long-term anticoagulation #5 GI prophylaxis - protonix 40 mg iv daily #6 Code status DO NOT RESUSCITATE #7 pyuria, suspected acute urinary tract infection on IV Rocephin initiated, cultures are sent positive for group D enterococcus , Rocephin discontinued and started amoxicillin, complete 7-8 more days of treatment #8 discharge planning, subacute rehab with patient or inpatient rehabilitation, therapies are in progress #9 acute confusional state, most likely secondary to insomnia, and pain on issues with narcotics, and sleep deprived patient. Narcotics are held for the next 24 hours, sleep hygiene, melatonin initiated at home dose, try to reorient the patient and restore cyclic wakefulness pattern plan for discharge most likely in the next 24 hours, discharge was held today secondary to confusion, Marwood against inpatient rehab
[2017-06-10] MEDS: BISACODYL 5 MG TABLET.DR PO SCH (20:14)
[2017-06-10] MEDS: ACETAMINOPHEN TAB 325 MG TAB PO PRN (20:15)
[2017-06-10] MEDS ORDERED: MELATONIN 3 MG TABLET PO SCH (21:00)
[2017-06-10] MEDS: LACTULOSE 20 GM/30 ML CUP PO PRN (22:46)
[2017-06-11] MEDS: ACETAMINOPHEN TAB 325 MG TAB PO PRN ×2 (03:26→12:53)
[2017-06-11] MEDS: ALPRAZolam 0.25 MG TAB PO PRN (03:27)
[2017-06-11] MEDS ORDERED: PANTOPRAZOLE 40 MG TABLET PO SCH (07:30)
[2017-06-11 07:40] LABS: Basophils % (A) 0 %; Eosinophils # (A) 0.1 k/uL (0-0.7); Eosinophils % (A) 2 %; HCT 25.7 % (34.0-46.0); HGB 8.3 gm/dL (11.4-16.0); Lymphocytes # (A) 0.8 k/uL (1.0-4.8); Lymphocytes % (A) 16 %; MCH 29.3 pg (25.0-35.0); MCHC 32.3 g/dL (31.0-37.0); MCV 90.6 fL (80.0-100.0); Mean Platelet Volume 7.6; Monocytes # (A) 0.4 k/uL (0-1.0); Monocytes % (A) 8 %; Neutrophils # (A) 3.7 k/uL (1.3-7.7); Neutrophils % (A) 72 %; Platelet Count 246 k/uL (150-450); RBC 2.83 m/uL (3.80-5.40); RDW 13.7 % (11.5-15.5); WBC 5.2 k/uL (3.8-10.6)
[2017-06-11 08:05] LABS: Anion Gap 8 mmol/L; Blood Urea Nitrogen 15 mg/dL (7-17); Calcium 8.6 mg/dL (8.4-10.2); Carbon Dioxide 28 mmol/L (22-30); Chloride 103 mmol/L (98-107); Glucose 105 mg/dL (74-99); Potassium 3.5 mmol/L (3.5-5.1); Sodium 139 mmol/L (137-145)
[2017-06-11] MEDS: AMOXICILLIN 500 MG CAP PO SCH (08:09)
[2017-06-11] MEDS: amLODIPine 2.5 MG TAB PO SCH (08:10)
[2017-06-11] MEDS: TAMSULOSIN 0.4 MG CAP.ER.24H PO SCH (08:10)
[2017-06-11] MEDS: EDOXABAN TOSYLATE 30 MG TABLET PO SCH (08:10)
[2017-06-11] MEDS: LACTOBACILLUS ACIDOPH & BULGAR 1 EACH PACKET PO SCH (08:14)
--- NOTE | 2017-06-11 08:57 | P.PN ---
Subjective Progress Note Date: 06/11/17 Principal diagnosis: Right hip fracture. Status post hemiarthroplasty right hip. This is an 87-year-old female admitted with right hip fracture. She is status post hemiarthroplasty of the right hip on 06/07/2017. Her Quintero catheter was reinserted. The daughter states that there is concern about urinary tract infection. The daughter also states the patient continues to have some confusion. Her vital signs are stable. Objective - Vital Signs Vital signs: Vital Signs Temp 97.1 F L 06/10/17 23:00 Pulse 123 H 06/10/17 23:00 Resp 18 06/10/17 23:00 BP 173/79 06/10/17 23:00 Pulse Ox 95 06/10/17 23:00 Intake & Output 06/10/17 06/11/17 06/11/17 18:59 06:59 18:59 Intake Total 200 180 Output Total 750 1050 Balance -550 -870 Intake: Oral 200 180 Output: Urine 750 1050 Uretheral (Quintero) 750 Other: Voiding Method Indwelling Catheter Indwelling Catheter - Exam This is a pleasant 87-year-old female in no acute distress. Her daughter is present at bedside. She is confused today, but more alert. Exam of the right hip reveals no erythema or ecchymosis. The Dermabond glue is intact. There is no active drainage. She has full foot and ankle motion without difficulty or pain. Neurovascular status to the lower extremity is intact. - Labs CBC & Chem 7: 06/11/17 06:41 06/11/17 06:41 Labs: Abnormal Lab Results - Last 24 Hours (Table) 06/11/17 06/11/17 Range/Units 06:41 06:41 RBC 2.83 L (3.80-5.40) m/uL Hgb 8.3 L (11.4-16.0) gm/dL Hct 25.7 L (34.0-46.0) % Lymphocytes # 0.8 L (1.0-4.8) k/uL Glucose 105 H (74-99) mg/dL Assessment and Plan (1) Status post hip hemiarthroplasty Current Visit: Yes Status: Acute Code(s): Z96.649 - PRESENCE OF UNSPECIFIED ARTIFICIAL HIP JOINT SNOMED Code(s): 640311466 (2) Closed right hip fracture Current Visit: Yes Status: Acute Code(s): S72.001A - FRACTURE OF UNSP PART OF NECK OF RIGHT FEMUR, INIT SNOMED Code(s): 277892554 (3) Right hip pain Current Visit: Yes Status: Acute Code(s): M25.551 - PAIN IN RIGHT HIP SNOMED Code(s): 90183251 (4) Status post fall Current Visit: Yes Status: Acute Code(s): Z91.81 - HISTORY OF FALLING SNOMED Code(s): 663666669 Plan: The clinical findings are discussed with the patient and her daughter. We're planning discharge to inpatient rehab. She may be discharged whenever she is cleared medically.
--- NOTE | 2017-06-11 09:03 | P.DS ---
Providers Date of admission: 06/06/17 10:52 Expected date of discharge: 06/11/17 Attending physician: Sanford Sullivan Consults: 06/06/17 11:46 Consult Physician Stat Consulting Provider: Jose Walter Consult Reason/Comments: Right Hip Fracture, Med Mgmt Do you want consulting provider notified?: Yes 06/06/17 12:14 Consult Physician Stat Consulting Provider: Dvaid Pantoja Consult Reason/Comments: Right Hip Surgery, Cardio Clearance Do you want consulting provider notified?: Yes 06/09/17 12:07 Consult Physician Routine Consulting Provider: Daryl Montemayor Consult Reason/Comments: hip fracture in pt rehab Do you want consulting provider notified?: Yes Primary care physician: Jose Walter - Discharge Diagnosis(es) (1) Status post hip hemiarthroplasty Current Visit: Yes Status: Acute (2) Closed right hip fracture Current Visit: Yes Status: Acute (3) Right hip pain Current Visit: Yes Status: Acute (4) Status post fall Current Visit: Yes Status: Acute Hospital Course: This is an 87-year-old female who presented on 06/16/2017 after falling and sustaining injury to the right hip. On exam and x-ray in the emergency department she was found to have a hip fracture. The pt is admitted to our service for surgical intervention and care. The patient is taken to surgery for hemiarthroplasty of the right hip. The procedure is performed without complication or sequelae. The patient is doing well postoperatively. She is having some confusion and was found to have a urinary tract infection. She is currently on antibiotics per medical. Vital signs are stable on postop day #4. There are no new complaints or concerns. The patient is discharged to inpatient rehab pending medical clearance today. Please refer to the med rec for accurate list of medications. Patient Condition at Discharge: Good Plan - Discharge Summary Discharge Rx Participant: No New Discharge Prescriptions: New Sennosides-Docusate Sodium [Senokot-S] 1 tab PO BID #60 tablet traMADol HCL [Ultram] 50 mg PO Q6HR PRN #90 tab PRN Reason: Pain Acetaminophen [Tylenol Extra Strength] 500 mg PO Q8H #20 tablet No Action Warfarin [Coumadin] 5 mg PO DIRECTED Melatonin 5 mg PO HS PRN PRN Reason: Insomnia amLODIPine [Norvasc] 2.5 mg PO DAILY Lactulose [Lactulose] 10 gm PO HS PRN PRN Reason: Constipation Edoxaban Tosylate [Savaysa] 30 mg PO DIRECTED Biotin 5 mg PO DAILY L.acidoph,Paracasei, B.lactis [Probiotic] 1 cap PO DAILY Docusate [Colace] 100 mg PO W/LUNCH Calcium Polycarbophil [Fiber-Lax] 625 mg PO W/LUNCH Bisacodyl 5 mg PO HS Discharge Medication List Melatonin 5 mg PO HS PRN 01/30/15 [History] Warfarin [Coumadin] 5 mg PO DIRECTED 01/30/15 [History] Biotin 5 mg PO DAILY 06/06/17 [History] Bisacodyl 5 mg PO HS 06/06/17 [History] Calcium Polycarbophil [Fiber-Lax] 625 mg PO W/LUNCH 06/06/17 [History] Docusate [Colace] 100 mg PO W/LUNCH 06/06/17 [History] Edoxaban Tosylate [Savaysa] 30 mg PO DIRECTED 06/06/17 [History] L.acidoph,Paracasei, B.lactis [Probiotic] 1 cap PO DAILY 06/06/17 [History] Lactulose [Lactulose] 10 gm PO HS PRN 06/06/17 [History] amLODIPine [Norvasc] 2.5 mg PO DAILY 06/06/17 [History] Acetaminophen [Tylenol Extra Strength] 500 mg PO Q8H #20 tablet 06/11/17 [Rx] Sennosides-Docusate Sodium [Senokot-S] 1 tab PO BID #60 tablet 06/11/17 [Rx] traMADol HCL [Ultram] 50 mg PO Q6HR PRN #90 tab 06/11/17 [Rx] Follow up Appointment(s)/Referral(s): Birdie Chang PAC [PHYSICIAN TRANSIT BUS DRIVER] - 07/09/17 1:45 pm ( ) Jose Walter MD [Primary Care Provider] - 1-2 days (Please follow up with PCP after leaving rehab) Raymundo Lee, [NON-STAFF] - As Needed Activity/Diet/Wound Care/Special Instructions: 1. Weight-bear as tolerated right lower extremity 2. May place ice over the incision site for comfort support as needed 3. Keep dressing over the right hip clean, dry, and intact 4. Patient may shower without a dressing intact if the incision remains clean and dry with no active drainage after 72 hours 5. Continue medications as prescribed Discharge Disposition: TRANSFER TO SNF/ECF
[2017-06-11 09:43] VITALS: BP 139/65; PULSE 74; RESP 16; TEMP 97.4
[2017-06-11] MEDS ORDERED: POTASSIUM CHLORIDE ER 20 MEQ TAB.ER PO STA (12:02)
[2017-06-11] MEDS: CALCIUM POLYCARBOPHIL 625 MG TAB PO SCH (12:55)
[2017-06-11] MEDS: DOCUSATE 100 MG CAP PO SCH (12:55)
== END 2017-06-11 14:07 | DRG 470 ==
LOC: EC 08:26 → 3SUR 10:52
PROVIDERS: ADMIT Orthopaedic Surgery; ATTEND Orthopaedic Surgery
PROC: 0SRR0J9 Replacement of Right Hip Joint, Femoral Surface with Synthetic Substitute, Cemented, Open Approach (ICD-10-PCS; principal; 2017-06-06)
DX: S72.031A Displaced midcervical fracture of right femur, initial encounter for closed fracture (principal); I48.91 Unspecified atrial fibrillation; N39.0 Urinary tract infection, site not specified; M25.051 Hemarthrosis, right hip; E78.5 Hyperlipidemia, unspecified; I10 Essential (primary) hypertension; W06.XXXA Fall from bed, initial encounter; Z79.01 Long term (current) use of anticoagulants; Z82.49 Family history of ischemic heart disease and other diseases of the circulatory system; Z90.710 Acquired absence of both cervix and uterus; Z91.81 History of falling; Z95.0 Presence of cardiac pacemaker; Z79.899 Other long term (current) drug therapy; B95.2 Enterococcus as the cause of diseases classified elsewhere
CPT/HCPCS: 36415; 71045; 73502; 80048; 80053; 81001; 85025; 85610; 85730; 87077; 87086; 87186; 88305; 88311; 93005; 93306; 96374; 96376; 99285

== ENCOUNTER 2017-07-06 03:00 | Emergency (ER) | payer MEDICARE, OTHER ==
[2017-07-06 03:08] VITALS: RESP 16
[2017-07-06] MEDS ORDERED: traMADol 50 MG TAB PO STA (03:20)
--- NOTE | 2017-07-06 03:34 | ED ---
Fall HPI - General Chief Complaint: Fall Stated Complaint: Fall Time Seen by Provider: 07/06/17 03:10 Source: patient, EMS Mode of arrival: EMS - History of Present Illness Initial Comments: Patient is an 87-year-old woman who comes in to be evaluated after she had a fall tonight. The patient states she had gotten up to use the bathroom around 2 :00, she states she lost her balance and fell backward striking her back and head. She indicates the lumbar area of the back and the occipital area of her head. Patient denies loss of consciousness. She denies any neurologic symptoms. She states that she was able to stand following the fall. She does not believe anything else was injured. MD Complaint: fall Onset/Timin -: hour(s) Fall From: standing When Fall Occurred: 1-3 hours [employer] Fall Witnessed: no Place Fall Occurred: fdc/SNF Loss of Consciousness: none Prolonged Down Time?: no Symptoms Prior to Fall: none Location: head, back Severity: moderate Quality: aching Context: tripped/slipped Associated Symptoms: headache - Related Data Home Medications Medication Instructions Recorded Confirmed Melatonin 5 mg PO HS PRN 01/30/15 06/06/17 Biotin 5 mg PO DAILY 06/06/17 06/06/17 Bisacodyl 5 mg PO HS 06/06/17 06/06/17 Calcium Polycarbophil [Fiber-Lax] 625 mg PO W/LUNCH 06/06/17 06/06/17 Docusate [Colace] 100 mg PO W/LUNCH 06/06/17 06/06/17 Edoxaban Tosylate [Savaysa] 30 mg PO DIRECTED 06/06/17 06/06/17 L.acidoph,Paracasei, B.lactis 1 cap PO DAILY 06/06/17 06/06/17 [Probiotic] Lactulose 10 gm PO HS PRN 06/06/17 06/06/17 amLODIPine [Norvasc] 2.5 mg PO DAILY 06/06/17 06/06/17 Previous Rx's Medication Instructions Recorded ALPRAZolam [Xanax] 0.25 mg PO BID PRN #60 tab 06/11/17 Acetaminophen [Tylenol Extra 500 mg PO Q8H #20 tablet 06/11/17 Strength] Amoxicillin 500 mg PO Q8H #21 capsule 06/11/17 Ferrous Sulfate [Iron (65 MG 325 mg PO BID #60 tab 06/11/17 Elemental)] Sennosides-Docusate Sodium 1 tab PO BID #60 tablet 06/11/17 [Senokot-S] Tamsulosin [Flomax] 0.4 mg PO PC-BRKFST #14 cap.er.24h 06/11/17 traMADol HCL [Ultram] 50 mg PO Q6HR PRN #90 tab 06/11/17 Allergies Allergy/AdvReac Type Severity Reaction Status Date / Time No Known Allergies Allergy Verified 06/06/17 09:42 Review of Systems ROS Statement: Those systems with pertinent positive or pertinent negative responses have been documented in the HPI. ROS Other: All systems not noted in ROS Statement are negative. Constitutional: Denies: fever, weakness Eyes: Denies: vision change Respiratory: Denies: cough, dyspnea Cardiovascular: Denies: chest pain, palpitations, orthopnea, syncope Gastrointestinal: Denies: abdominal pain, vomiting, diarrhea Genitourinary: Denies: dysuria, hematuria Musculoskeletal: Reports: back pain. Denies: arthralgia Skin: Denies: rash Neurological: Reports: headache. Denies: weakness, numbness, paresthesias, confusion Hematological/Lymphatic: Denies: easy bleeding Past Medical History Past Medical History: Dementia, Hyperlipidemia, Hypertension Additional Past Medical History / Comment(s): Complete heart block, caratid disease, "forgetful". History of Any Multi-Drug Resistant Organisms: None Reported Past Surgical History: Hysterectomy, Orthopedic Surgery, Pacemaker, Tonsillectomy Additional Past Surgical History / Comment(s): 2009 dual pacemaker insertion with generator change in 2014, L knee arthroscopy, bilateral cataract removals, R hip fracture with surgery Past Anesthesia/Blood Transfusion Reactions: No Reported Reaction Type of Cardiac Device: Permanent Pacemaker Device Placement Date:: 2009 inserted and gen change in 2014. Past Psychological History: Depression Smoking Status: Never smoker Past Alcohol Use History: None Reported Past Drug Use History: None Reported - Past Family History Father Family Medical History: No Reported History Mother Family Medical History: Myocardial Infarction ([place]) Additional Family Medical History / Comment(s): Mother of a [place] before the age of 60yrs. General Exam Limitations: no limitations General appearance: alert, in no apparent distress Head exam: Present: normocephalic, other (Occipital scalp contusion) Eye exam: Present: normal appearance, PERRL, EOMI. Absent: scleral icterus, conjunctival injection, nystagmus Neck exam: Present: normal inspection, tenderness, other (Cervical collar). Absent: meningismus Respiratory exam: Present: normal lung sounds bilaterally. Absent: respiratory distress, wheezes, rales, rhonchi, stridor Cardiovascular Exam: Present: regular rate, normal rhythm, systolic murmur ( Grade 1/6 systolic ejection murmur). Absent: diastolic murmur, rubs, gallop GI/Abdominal exam: Present: soft. Absent: tenderness, guarding, rebound, rigid , pulsatile mass Extremities exam: Present: normal inspection, normal capillary refill. Absent: pedal edema, calf tenderness Back exam: Present: normal inspection, vertebral tenderness. Absent: CVA tenderness (R), CVA tenderness (L) Neurological exam: Present: alert, oriented X3, CN II-XII intact. Absent: motor sensory deficit Skin exam: Present: warm, dry, intact, normal color. Absent: rash Course Vital Signs 07/06/17 03:02 Temperature 97.7 F Pulse Rate 74 Respiratory 16 Rate Blood Pressure 180/77 O2 Sat by Pulse 96 Oximetry Disposition Clinical Impression: Fall, Head injury Disposition: HOME SELF-CARE Condition: Good Instructions: Fall Prevention for Older Adults (ED) Referrals: Jose Walter MD [Primary Care Provider] - 1-2 days
--- NOTE | 2017-07-06 03:52 | CT ---
EXAM: CT Head Without Intravenous Contrast CLINICAL HISTORY: Pain TECHNIQUE: Axial computed tomography images of the head/brain without intravenous contrast. CTDI is 57.40 mGy and DLP is 1034.70 mGy-cm. This CT exam was performed using one or more of the following dose reduction techniques: automated exposure control, adjustment of the mA and/or kV according to patient size, and/or use of iterative reconstruction technique. COMPARISON: No relevant prior studies available. FINDINGS: Brain: No acute infarct, hemorrhage, mass or edema. Chronic small vessel ischemic disease and senescent changes. Ventricles: Unremarkable. No ventriculomegaly. Bones/joints: Unremarkable. No acute fracture. Soft tissues: Unremarkable. Sinuses: Mild mucosal thickening of paranasal sinuses. Mastoid air cells: Unremarkable as visualized. No mastoid effusion. Orbits: Bilateral lens implants. IMPRESSION: No acute findings. EXAM: CT Cervical Spine Without Intravenous Contrast CLINICAL HISTORY: Pain TECHNIQUE: Axial computed tomography images of the cervical spine without intravenous contrast. CTDI is 13.80 mGy and DLP is 261.40 mGy-cm. This CT exam was performed using one or more of the following dose reduction techniques: automated exposure control, adjustment of the mA and/or kV according to patient size, and/or use of iterative reconstruction technique. COMPARISON: No relevant prior studies available. FINDINGS: Vertebrae: No acute fracture or traumatic malalignment. Discs/spinal canal/neural foramina: No acute findings. No spinal canal stenosis. Soft tissues: Unremarkable. Lung apices: Unremarkable as visualized. IMPRESSION: No acute findings.
--- NOTE | 2017-07-06 03:57 | XR ---
EXAM: XR Lumbar Spine, 2 or 3 Views CLINICAL HISTORY: Pain TECHNIQUE: Frontal and lateral views of the lumbar spine. COMPARISON: No relevant prior studies available. FINDINGS: Vertebrae: Multilevel degenerative changes with mild height loss of the superior endplate of L5 which likely represents an age-indeterminate compression deformity. Normal alignment. Disc spaces: Multilevel disc space height loss. Mild to moderate neural foraminal stenosis noted within the lower lumbar spine. Soft tissues: Unremarkable. IMPRESSION: Multilevel degenerative changes with mild height loss of the superior endplate of L5 which likely represents an age-indeterminate compression deformity.
[2017-07-06] MEDS ORDERED: MORPHINE SULFATE 4MG/4ML SYRG IM STA ×2 (05:37→05:44)
[2017-07-06] MEDS ORDERED: MORPHINE SULFATE 4MG/4ML SYRG ONE (05:42)
[2017-07-06 05:57] VITALS: BP 149/78; PULSE 73; TEMP 98
== END 2017-07-06 05:57 | disposition home or self-care (01) ==
LOC: EC 03:00
DX: S00.03XA Contusion of scalp, initial encounter (principal); I44.2 Atrioventricular block, complete; I10 Essential (primary) hypertension; Z95.0 Presence of cardiac pacemaker; Z79.899 Other long term (current) drug therapy; Z79.01 Long term (current) use of anticoagulants; W01.10XA Fall on same level from slipping, tripping and stumbling with subsequent striking against unspecified object, initial encounter; Y92.129 Unspecified place in nursing home as the place of occurrence of the external cause
CPT/HCPCS: 99284; 96372; 72100; 72125; 70450; J2270